=== PATIENT | female | born 1935 | race Caucasian/White ===

== ENCOUNTER 2017-03-05 08:47 | Emergency (ER) | payer MEDICARE, BC ==
[2017-03-05] MEDS ORDERED: Sodium Chloride 0.9% 1000 ML 1,000 ML IV STA (09:25)
[2017-03-05] MEDS ORDERED: Zofran 4 MG/2 ML VIAL IV ONE (09:25)
[2017-03-05] MEDS ORDERED: Zofran 4 MG/2 ML VIAL ONE (09:28)
[2017-03-05] MEDS ORDERED: Sodium Chloride 0.9% 1000 ML 1,000 ML ONE (09:29)
--- NOTE | 2017-03-05 09:31 | ERPHSYRPT ---
- History of Present Illness Time Seen by Provider: 03/05/17 09:28 Source: patient Exam Limitations: no limitations Patient Subjective Stated Complaint: EMS STATES THEY WERE CALLED TO PT RESIDENCE FOR AN ELDERLY FEMALE FEELING NAUSEATED AND NOT WELL. UPON ARRIVAL TO ER PATIENT STATES "I JUST FELT STRANGE AND NAUSEATED." DENIESA [place] DIARRHEA OR VOMITNG. [place] PAIN. Triage Nursing Assessment: PT PINK, WARM, DRY. PT ALERT AND ORIENTED X3. PT AFEBRILE. ABDOMEN SOFT NON TENDER. BOWEL SOUNDS PRESENT IN ALL 4 QAUDS. Physician History: mild to mod nausea today w/o emesis, +diaphoresis w/ generalized weakness and near syncope, no pain, no fever, no injury, pt improving now, pt received a pneumonia shot yesterday Timing/Duration: today Severity: moderate Associated Symptoms: nausea, diaphoresis, weakness, No vomiting, No abdominal pain, No shortness of breath, No chest pain, No fever, No headaches, No syncope Allergies/Adverse Reactions: No Known Drug Allergies Allergy (Unverified 03/05/17 08:56) Home Medications: Aspirin 325 mg PO DAILY 03/05/17 [History] Spironolactone 0 mg PO DAILY 03/05/17 [History] Hx Tetanus, Diphtheria Vaccination/Date Given: Yes (UNKNOWN) Hx Influenza Vaccination/Date Given: Yes Hx Pneumococcal Vaccination/Date Given: Yes Immunizations Up to Date: Yes - Review of Systems Constitutional: No Fever Eyes: No Vision Changes Ears, Nose, & Throat: No Symptoms Respiratory: No Symptoms Cardiac: No Symptoms Abdominal/Gastrointestinal: Nausea, No Abdominal Pain, No Vomiting Genitourinary Symptoms: Dysuria Musculoskeletal: No Back Pain, No Neck Pain Skin: No Rash Neurological: Dizziness, No Focal Weakness, No Headache Psychological: No Symptoms - Past Medical History Pertinent Past Medical History: Yes Cardiac History: Hypertension Psycho-Social History: Depression - Past Surgical History Past Surgical History: Yes Gastrointestinal: Appendectomy, Cholecystectomy Female Surgical History: Hysterectomy - Social History Smoking Status: Never smoker Exposure to second hand smoke: No Drug Use: none Patient Lives Alone: No - Nursing Vital Signs Nursing Vital Signs: Initial Vital Signs Temperature 97.3 F 03/05/17 08:49 Pulse Rate 73 03/05/17 08:49 Respiratory Rate 18 03/05/17 08:49 Blood Pressure 144/96 03/05/17 08:49 O2 Sat by Pulse Oximetry 98 03/05/17 08:49 Pain Scale Pain Intensity 0 - Physical Exam General Appearance: no apparent distress Eye Exam: PERRL/EOMI Ears, Nose, Throat Exam: moist mucous membranes Neck Exam: normal inspection Respiratory Exam: normal breath sounds Cardiovascular Exam: regular rate/rhythm Gastrointestinal/Abdomen Exam: soft, No tenderness Back Exam: normal inspection, No vertebral tenderness Extremity Exam: normal range of motion, pelvis stable, No pedal edema Neurologic Exam: alert, oriented x 3, cooperative, normal mood/affect Skin Exam: normal color, warm, dry SpO2 Interpretation: normal SpO2: 98 Oxygen Delivery: Room Air - Course Nursing assessment & vital signs reviewed: Yes EKG Interpreted by Me: Other (nsr 73, no stemi) - Radiology Exams Chest X-ray Interpretation: Discussed w/ radiologist, Negative - CT Exams Head CT Interpretation: Negative, Discussed w/radiologist Abdomen CT Interpretation: Negative, Discussed w/radiologist Ordered Tests: Active Orders 24 hr Category Date Time Status ACCUCHECK [Accucheck] STAT Care 03/05/17 09:02 Active Co Teacher STAT Care 03/05/17 09:02 Active EKG-ER Only STAT Care 03/05/17 09:02 Active IV Insertion STAT Care 03/05/17 09:02 Active cath [Cath for Specimen-Straight] STAT Care 03/05/17 09:17 Active ABDOMEN AND PELVIS W/0 CONTRAS [CT] Stat Exams 03/05/17 09:25 Completed CHEST 1 VIEW (PORTABLE) Stat Exams 03/05/17 09:25 Completed HEAD WITHOUT CONTRAST [CT] Stat Exams 03/05/17 09:27 Completed CBC W DIFF Stat Lab 03/05/17 09:25 Completed CMP Stat Lab 03/05/17 09:15 Completed CULTURE,URINE Stat Lab 03/05/17 09:45 Received LIPASE Stat Lab 03/05/17 09:15 Completed Lactic Acid Stat Lab 03/05/17 09:25 Completed PROTIME WITH INR Stat Lab 03/05/17 09:15 Completed TROPONIN Q3H Lab 03/05/17 09:15 Completed TROPONIN Q3H Lab 03/05/17 12:30 Ordered TROPONIN Q3H Lab 03/05/17 15:30 Ordered TROPONIN Q3H Lab 03/05/17 18:30 Ordered TROPONIN Q3H Lab 03/05/17 21:30 Ordered UA W/ MICROSCOPIC Stat Lab 03/05/17 09:45 Completed Medication Summary Discontinued Medications Generic Name Dose Route Start Last Admin Trade Name Wendy PRN Reason Stop Dose Admin Sodium Chloride 1,000 mls @ 999 mls/hr 03/05/17 09:25 03/05/17 09:29 Sodium Chloride 0.9% 1000 Ml IV 03/05/17 10:25 999 mls/hr .Q1H1M STA Administration Sodium Chloride Confirm 03/05/17 09:29 Sodium Chloride 0.9% 1000 Ml Administered 03/05/17 09:30 Dose 1,000 mls @ ud .ROUTE .STK-MED ONE Ondansetron HCl 4 mg 03/05/17 09:25 03/05/17 09:29 Zofran 4 Mg/2 Ml Vial IV 03/05/17 09:26 4 mg STAT ONE Administration Ondansetron HCl Confirm 03/05/17 09:28 Zofran 4 Mg/2 Ml Vial Administered 03/05/17 09:29 Dose 4 mg .ROUTE .STK-MED ONE Lab/Rad Data: Laboratory Result Diagrams 03/05/17 09:25 03/05/17 09:15 Laboratory Results 03/05/17 03/05/17 03/05/17 Range/Units 09:45 09:25 09:25 WBC 7.4 (4.0-10.5) K/mm3 RBC 4.79 (4.1-5.4) M/mm3 Hgb 14.2 (12.0-16.0) gm/dl Hct 42.6 (35-47) % MCV 88.9 (78-100) fl MCH 29.6 (26-32) pg MCHC 33.3 (32-36) g/dl RDW 13.5 (11.5-14.0) % Plt Count 246 (150-450) K/mm3 MPV 9.9 H (6-9.5) fl Gran % 61.8 (36.0-66.0) % Lymphocytes % 23.8 L (24.0-44.0) % Monocytes % 10.5 (0.0-12.0) % Eosinophils % 3.6 (0.00-5.0) % Basophils % 0.3 (0.0-0.4) % Basophils # 0.02 (0-0.4) INR (0.8-3.0) Sodium (136-145) mEq/L Potassium (3.5-5.1) mEq/L Chloride (98-107) mEq/L Carbon Dioxide (21-32) mEq/L Anion Gap (5-15) MEQ/L BUN (9-20) mg/dL Creatinine (0.55-1.30) mg/dl Estimated GFR ML/MIN Glucose (70-110) MG/DL Lactic Acid 1.3 (0.4-2.0) Calcium (8.5-10.1) mg/dL Total Bilirubin (0.2-1.0) mg/dL AST (15-37) U/L ALT (12-78) U/L Alkaline Phosphatase (46-116) U/L Troponin I (0.000-0.056) ng/ml Serum Total Protein (6.4-8.2) gm/dL Albumin (3.4-5.0) g/dL Lipase (73-393) U/L Ur Collection Type CATH Urine Color YELLOW (YELLOW) Urine Appearance CLOUDY (CLEAR) Urine pH 8.0 (5-6) Ur Specific [place] 1.010 (1.005-1.025) Urine Protein 30 (Negative) Urine Ketones NEGATIVE (NEGATIVE) Urine Blood 5-10 (0-5) Jason/ul Urine Nitrite POSITIVE (NEGATIVE) Urine Bilirubin NEGATIVE (NEGATIVE) Urine Urobilinogen NORMAL (0-1) mg/dL Ur Leukocyte Esterase 2+ (NEGATIVE) Urine Microscopic RBC 5-10 (0-2) /HPF Urine Microscopic WBC 50-100 (0-5) /HPF Ur Epithelial Cells FEW (FEW) /HPF Urine Bacteria MANY (NEGATIVE) /HPF Urine Mucus SLIGHT (NEGATIVE) /HPF Urine Culture Reflexed YES (NO) Urine Glucose NEGATIVE (NEGATIVE) mg/dL Specimen Received 03-0503/05/17 03/05/17 03/05/17 Range/Units 09:15 09:15 09:15 WBC (4.0-10.5) K/mm3 RBC (4.1-5.4) M/mm3 Hgb (12.0-16.0) gm/dl Hct (35-47) % MCV (78-100) fl MCH (26-32) pg MCHC (32-36) g/dl RDW (11.5-14.0) % Plt Count (150-450) K/mm3 MPV (6-9.5) fl Gran % (36.0-66.0) % Lymphocytes % (24.0-44.0) % Monocytes % (0.0-12.0) % Eosinophils % (0.00-5.0) % Basophils % (0.0-0.4) % Basophils # (0-0.4) INR 1.11 (0.8-3.0) Sodium 136 (136-145) mEq/L Potassium 4.2 (3.5-5.1) mEq/L Chloride 103 (98-107) mEq/L Carbon Dioxide 23.2 (21-32) mEq/L Anion Gap 13.8 (5-15) MEQ/L BUN 19 (9-20) mg/dL Creatinine 0.86 (0.55-1.30) mg/dl Estimated GFR > 60 ML/MIN Glucose 110 (70-110) MG/DL Lactic Acid (0.4-2.0) Calcium 9.4 (8.5-10.1) mg/dL Total Bilirubin 1.00 (0.2-1.0) mg/dL AST 17 (15-37) U/L ALT 19 (12-78) U/L Alkaline Phosphatase 74 (46-116) U/L Troponin I < 0.017 (0.000-0.056) ng/ml Serum Total Protein 6.9 (6.4-8.2) gm/dL Albumin 3.9 (3.4-5.0) g/dL Lipase 117 (73-393) U/L Ur Collection Type Urine Color (YELLOW) Urine Appearance (CLEAR) Urine pH (5-6) Ur Specific [place] (1.005-1.025) Urine Protein (Negative) Urine Ketones (NEGATIVE) Urine Blood (0-5) Jason/ul Urine Nitrite (NEGATIVE) Urine Bilirubin (NEGATIVE) Urine Urobilinogen (0-1) mg/dL Ur Leukocyte Esterase (NEGATIVE) Urine Microscopic RBC (0-2) /HPF Urine Microscopic WBC (0-5) /HPF Ur Epithelial Cells (FEW) /HPF Urine Bacteria (NEGATIVE) /HPF Urine Mucus (NEGATIVE) /HPF Urine Culture Reflexed (NO) Urine Glucose (NEGATIVE) mg/dL Specimen Received - Progress Progress: improved Discussed with : Betty Will see patient in: office Counseled pt/family regarding: lab results, diagnosis, need for follow-up, rad results (differential dw pt as tia, viral syndrome, uti, recent vaccination rx) - Departure Time of Disposition: 12:16 Departure Disposition: Home Clinical Impression: UTI (urinary tract infection) Qualifiers: Urinary tract infection type: acute cystitis Hematuria presence: with hematuria Qualified Code(s): N30.01 - Acute cystitis with hematuria Condition: Good Critical Care Time: No Referrals: DAKOTA DE SANTIAGO [Primary Care Provider] - Additional Instructions: oral fluids, rest, return if worse, keflex, see your doctor aspirin daily, zofran odt
[2017-03-05 09:37] LABS: BASOPHIL % 0.3 % (0.0-0.4); Eosinophil % 3.6 % (0.00-5.0); Granulocytes % 61.8 % (36.0-66.0); Lymphocytes % 23.8 % (24.0-44.0); Mean Cell Volume 88.9 fl (78-100); Mean Corpuscular Hemoglobin 29.6 pg (26-32); Mean Platelet Volume 9.9 fl (6-9.5); Monocytes % 10.5 % (0.0-12.0); Platelet Count 246 K/mm3 (150-450); Red Blood Count 4.79 M/mm3 (4.1-5.4); Red Cell Distribution Width 13.5 % (11.5-14.0); White Blood Count 7.4 K/mm3 (4.0-10.5)
[2017-03-05 09:59] LABS: INR 1.11 (0.8-3.0); PROTIME 12.3 SECONDS (9.95-12.35)
[2017-03-05 10:12] LABS: ALBUMIN 3.9 g/dL (3.4-5.0); ALKALINE PHOSPHATASE 74 U/L (46-116); ANION GAP 13.8 MEQ/L (5-15); BLOOD UREA NITROGEN 19 mg/dL (9-20); CHLORIDE 103 mEq/L (98-107); Carbon Dioxide 23.2 mEq/L (21-32); Glucose 110 MG/DL (70-110); LIPASE 117 U/L (73-393); Potassium 4.2 mEq/L (3.5-5.1); SGOT/AST 17 U/L (15-37); SGPT/ALT 19 U/L (12-78); SODIUM 136 mEq/L (136-145); Total Protein 6.9 gm/dL (6.4-8.2)
--- NOTE | 2017-03-05 10:18 | XRAY ---
Indication: Dizziness and near syncope. Multiple contiguous axial images obtained through the head without contrast. Comparison: None Age-appropriate global atrophy and mild periventricular degenerative micro-ischemia bilaterally. No acute intracranial hemorrhage, abnormal extra-axial fluid collection, or mass effect. Fourth ventricle is midline without hydrocephalus. Bony calvarium intact. There is fluid leveling in the left maxillary and lesser degree both sphenoid sinuses. Previous right mastoidectomy. Impression: Nonacute senile brain. Incidental paranasal sinus disease. CT DI 61.85
--- NOTE | 2017-03-05 10:19 | XRAY ---
Indication: Vomiting. Comparison: July 23, 2012. Portable chest remains clear. Heart is not enlarged for AP portable technique. Descending aorta remains tortuous. Bony thorax intact again with mild osteopenia. Impression: Stable nonacute chest with chronic features.
--- NOTE | 2017-03-05 10:19 | XRAY ---
Indication: Nausea and vomiting. Multiple contiguous axial images obtained through the abdomen and pelvis without contrast as ordered. Comparison: CT renal stone study July 30, 2006. Lung bases again demonstrates minimal bibasilar atelectasis/scarring. No infiltrate or effusion. Heart is not enlarged. Noncontrasted stomach and bowel loops appear nonobstructed. There is mild diffuse scattered colonic fecal debris throughout again with mild sigmoid diverticulosis. Previous reported appendectomy, cholecystectomy, and hysterectomy. No free fluid/air. Urinary bladder now demonstrates intraluminal air bubbles either iatrogenic versus gas-forming bacterial infection. The 2 previous hepatic cysts have minimally enlarged in the interim, largest measuring 1.9 cm. Remaining liver, pancreas, spleen, adrenal glands, kidneys, and ureters appear unremarkable for noncontrast exam. There are mild aortoiliac calcifications without AAA. Osseous structures intact again with minimal degenerative changes throughout the spine and stable grade 1 L4 spondylolisthesis. Impression: 1. New urinary bladder intraluminal air bubbles. Rule out recent catheterization versus airforming bacterial infection. 2. Fecal stasis without obstruction. Again sigmoid diverticulosis without diverticulitis. 3. Minimally enlarging hepatic cysts. 4. Stable L4 grade [address] DI 18.10
[2017-03-05 10:21] LABS: Bilirubin NEGATIVE (NEGATIVE); COMPLETE URINE MICROSCOPIC? YES; Epithelial Cells FEW /HPF (FEW); Glucose NEGATIVE (NEGATIVE); Leukocyte Esterase 2+ (NEGATIVE); Mucus SLIGHT /HPF (NEGATIVE); WBC 50-100 /HPF (0-5)
[2017-03-05 10:22] LABS: ADD URINE CULTURE? YES (NO); Bacteria MANY /HPF (NEGATIVE); Collection Type CATH
[2017-03-05 11:06] VITALS: PULSE 78
[2017-03-05 11:46] VITALS: O2SAT 98
[2017-03-05 12:13] VITALS: BP 129/83
== END 2017-03-05 13:00 | disposition home or self-care (01) ==
LOC: ED 08:47
DX: N30.01 Acute cystitis with hematuria (principal); R11.0 Nausea; I10 Essential (primary) hypertension
CPT/HCPCS: 93041; 96374; 99284; 36000; 82962; 93005; 81000; 85610; 36415; 83690; 87186; 85025; 87077; 80053; 84484; 87086; 71010; 70450; 74176; 83605; P9612; J2405

== ENCOUNTER 2017-12-14 11:51 | Observation (INO) | payer MEDICARE, BC ==
--- NOTE | 2017-12-14 12:02 | ERPHSYRPT ---
- History of Present Illness Time Seen by Provider: 12/14/17 11:59 Source: patient Patient Subjective Stated Complaint: pt here for weakness and slurred speech, today that started about 1030. she states she took AEZO otc meds and then she states her syptoms started. Triage Nursing Assessment: pt walked in, anxoius, alert and oreinted, resp easy , chest clear, abd soft, has slight swelling to lower legs, moves all ext well Physician History: mild to mod general weakness w/o loc at 10:30 for a few minutes, also w/ slurring speech and unable to read print, all symptoms gone now, no pain, no NV , no fever, hx uti Allergies/Adverse Reactions: clindamycin Adverse Reaction (Verified 12/14/17 11:58) Home Medications: Aspirin 325 mg PO DAILY 03/05/17 [History] Diltiazem HCl [Cartia Xt] 240 mg DAILY 12/14/17 [History] Levothyroxine Sodium 88 Mcg [Synthroid 88 Mcg] 88 mcg DAILY 12/14/17 [ History] Sertraline HCl 25 mg DAILY 12/14/17 [History] Hx Tetanus, Diphtheria Vaccination/Date Given: No Hx Influenza Vaccination/Date Given: No Hx Pneumococcal Vaccination/Date Given: Yes Immunizations Up to Date: Yes - Review of Systems Constitutional: Weakness, No Fever Eyes: No Discharge, No Eye Pain, No Eye Redness, No Photophobia, No Double Vision Ears, Nose, & Throat: No Mouth Pain Respiratory: No Dyspnea Cardiac: No Chest Pain Abdominal/Gastrointestinal: No Abdominal Pain, No Vomiting Genitourinary Symptoms: No Dysuria Musculoskeletal: No Back Pain, No Neck Pain Skin: No Rash Neurological: Speech Changes, No Dizziness, No Focal Weakness, No Headache - Past Medical History Pertinent Past Medical History: Yes Cardiac History: Hypertension Psycho-Social History: Anxiety, Depression - Past Surgical History Past Surgical History: Yes Gastrointestinal: Appendectomy, Cholecystectomy Female Surgical History: Hysterectomy - Social History Smoking Status: Never smoker Exposure to second hand smoke: No Drug Use: none Patient Lives Alone: No - Female History Hx Last Menstrual Period: post - Nursing Vital Signs Nursing Vital Signs: Initial Vital Signs Temperature 97.2 F 12/14/17 11:53 Pulse Rate 89 12/14/17 11:53 Respiratory Rate 16 12/14/17 11:53 Blood Pressure 167/113 12/14/17 11:53 O2 Sat by Pulse Oximetry 94 L 12/14/17 11:53 Pain Scale Pain Intensity 0 - [place] Coma Scale Best Eye Response ([place]): (4) open spontaneously Best Verbal Response ([place]): (5) oriented Best Motor Response ([place]): (6) obeys commands [place] Total: 15 - Physical Exam Eye Exam: bilateral eye: PERRL, EOMI Ears, Nose, Throat Exam: moist mucous membranes Neck Exam: normal inspection Respiratory: normal breath sounds, lungs clear, No respiratory distress Cardiovascular: regular rate/rhythm Gastrointestinal: soft, No tenderness Back Exam: normal range of motion Extremity Exam: normal inspection Mental Status: alert, oriented x 3, cooperative, other (ems director equal) net developer architect Exam: normal hearing, normal speech, PERRL Motor/Sensory: no motor deficit Skin Exam: normal color, warm, dry SpO2 Interpretation: normal SpO2: 94 Oxygen Delivery: Room Air - Course Nursing assessment & vital signs reviewed: Yes EKG Interpreted by Me: Other (nsr 82, pvc, no stemi) - Radiology Exams Chest X-ray Interpretation: Discussed w/ radiologist, Negative - CT Exams Head CT Interpretation: Negative, Discussed w/radiologist Ordered Tests: Active Orders 24 hr Category Date Time Status Pmp Project Manager STAT Care 12/14/17 11:57 Active EKG-ER Only STAT Care 12/14/17 11:57 Active IV Insertion STAT Care 12/14/17 11:57 Active Nursing [Miscellaneous Nursing Order] ROUTINE Care 12/14/17 12:55 Active CHEST 1 VIEW (PORTABLE) Stat Exams 12/14/17 11:57 Completed HEAD WITHOUT CONTRAST [CT] Stat Exams 12/14/17 11:52 Completed CBC W DIFF Stat Lab 12/14/17 12:17 Completed CMP Stat Lab 12/14/17 12:17 Completed CULTURE,URINE Stat Lab 12/14/17 12:45 Received Lactic Acid Stat Lab 12/14/17 12:14 Completed TROPONIN Q3H Lab 12/14/17 12:17 Completed TROPONIN Q3H Lab 12/14/17 15:00 Ordered TROPONIN Q3H Lab 12/14/17 18:00 Ordered TROPONIN Q3H Lab 12/14/17 21:00 Ordered TROPONIN Q3H Lab 12/15/17 00:00 Ordered UA W/ MICROSCOPIC Stat Lab 12/14/17 12:45 Completed Transfer Order Routine Transfer 12/14/17 Ordered Lab/Rad Data: Laboratory Result Diagrams 12/14/17 12:17 12/14/17 12:17 Laboratory Results 12/14/17 12/14/17 12/14/17 Range/Units 12:45 12:17 12:17 WBC (4.0-10.5) K/mm3 RBC (4.1-5.4) M/mm3 Hgb (12.0-16.0) gm/dl Hct (35-47) % MCV (78-100) fl MCH (26-32) pg MCHC (32-36) g/dl RDW (11.5-14.0) % Plt Count (150-450) K/mm3 MPV (6-9.5) fl Gran % (36.0-66.0) % Eos # (Auto) (0-0.5) Absolute Lymphs (auto) (1.0-4.6) Absolute Monos (auto) (0.0-1.3) Lymphocytes % (24.0-44.0) % Monocytes % (0.0-12.0) % Eosinophils % (0.00-5.0) % Basophils % (0.0-0.4) % Absolute Granulocytes (1.4-6.9) Basophils # (0-0.4) Sodium 138 (137-145) mmol/L Potassium 3.9 (3.5-5.1) mmol/L Chloride 102 (98-107) mmol/L Carbon Dioxide 24 (22-30) mmol/L Anion Gap 16.3 H (5-15) MEQ/L BUN 20 H (7-17) mg/dL Creatinine 0.76 (0.52-1.04) mg/dL Estimated GFR > 60.0 ML/MIN Glucose 95 (74-106) mg/dL Lactic Acid (0.4-2.0) Calcium 10.0 (8.4-10.2) mg/dL Total Bilirubin 1.10 (0.2-1.3) mg/dL AST 29 (14-36) U/L ALT 26 (0-35) U/L Alkaline Phosphatase 102 (38-126) U/L Troponin I < 0.012 (0.000-0.034) ng/mL Serum Total Protein 7.8 (6.3-8.2) g/dL Albumin 4.7 (3.5-5.0) g/dL Ur Collection Type VOID Urine Color ORANGE (YELLOW) Urine Appearance HAZY (CLEAR) Urine pH 5.0 (5-6) Ur Specific [place] 1.010 (1.005-1.025) Urine Protein COLOR INTERFERENCE (Negative) Urine Ketones COLOR INTERFERENCE (NEGATIVE) Urine Blood 50 (0-5) Jason/ul Urine Nitrite COLOR INTERFERENCE (NEGATIVE) Urine Bilirubin COLOR INTERFERENCE (NEGATIVE) Urine Urobilinogen COLOR INTERFERENCE (0-1) mg/dL Ur Leukocyte Esterase COLOR INTERFERENCE (NEGATIVE) Urine Microscopic RBC 2-5 (0-2) /HPF Urine Microscopic WBC >100 (0-5) /HPF Ur Epithelial Cells FEW (FEW) /HPF Urine Bacteria FEW (NEGATIVE) /HPF Urine Culture Reflexed YES (NO) Urine Glucose COLOR INTERFERENCE (NEGATIVE) mg/dL Specimen Received 12/14/17 1245 12/14/17 12/14/17 Range/Units 12:17 12:14 WBC 7.5 (4.0-10.5) K/mm3 RBC 4.97 (4.1-5.4) M/mm3 Hgb 14.9 (12.0-16.0) gm/dl Hct 43.8 (35-47) % MCV 88.1 (78-100) fl MCH 30.0 (26-32) pg MCHC 34.0 (32-36) g/dl RDW 14.2 H (11.5-14.0) % Plt Count 243 (150-450) K/mm3 MPV 10.2 H (6-9.5) fl Gran % 63.4 (36.0-66.0) % Eos # (Auto) 0.17 (0-0.5) Absolute Lymphs (auto) 1.69 (1.0-4.6) Absolute Monos (auto) 0.89 (0.0-1.3) Lymphocytes % 22.4 L (24.0-44.0) % Monocytes % 11.8 (0.0-12.0) % Eosinophils % 2.3 (0.00-5.0) % Basophils % 0.1 (0.0-0.4) % Absolute Granulocytes 4.77 (1.4-6.9) Basophils # 0.01 (0-0.4) Sodium (137-145) mmol/L Potassium (3.5-5.1) mmol/L Chloride (98-107) mmol/L Carbon Dioxide (22-30) mmol/L Anion Gap (5-15) MEQ/L BUN (7-17) mg/dL Creatinine (0.52-1.04) mg/dL Estimated GFR ML/MIN Glucose (74-106) mg/dL Lactic Acid 1.0 (0.4-2.0) Calcium (8.4-10.2) mg/dL Total Bilirubin (0.2-1.3) mg/dL AST (14-36) U/L ALT (0-35) U/L Alkaline Phosphatase (38-126) U/L Troponin I (0.000-0.034) ng/mL Serum Total Protein (6.3-8.2) g/dL Albumin (3.5-5.0) g/dL Ur Collection Type Urine Color (YELLOW) Urine Appearance (CLEAR) Urine pH (5-6) Ur Specific [place] (1.005-1.025) Urine Protein (Negative) Urine Ketones (NEGATIVE) Urine Blood (0-5) Jason/ul Urine Nitrite (NEGATIVE) Urine Bilirubin (NEGATIVE) Urine Urobilinogen (0-1) mg/dL Ur Leukocyte Esterase (NEGATIVE) Urine Microscopic RBC (0-2) /HPF Urine Microscopic WBC (0-5) /HPF Ur Epithelial Cells (FEW) /HPF Urine Bacteria (NEGATIVE) /HPF Urine Culture Reflexed (NO) Urine Glucose (NEGATIVE) mg/dL Specimen Received - Progress Progress: improved Discussed with : Lewis Will see patient in: hospital (observation) Counseled pt/family regarding: lab results, diagnosis, rad results - Departure Time of Disposition: 14:13 Departure Disposition: Observation Clinical Impression: TIA (transient ischemic attack) Condition: Stable Critical Care Time: No Referrals: DAKOTA DE SANTIAGO [Primary Care Provider] -
--- NOTE | 2017-12-14 12:19 | XRAY ---
Indication: Weakness and confusion. Comparison: March 05, 2017. Portable chest remains clear. Heart is not enlarged. Descending aorta remains tortuous. Bony thorax intact again with mild osteopenia. Impression: Stable nonacute chest with chronic features.
[2017-12-14 12:20] LABS: BASOPHIL % 0.1 % (0.0-0.4); Basophil (Absolute #) 0.01 (0-0.4); Eosinophil % 2.3 % (0.00-5.0); Eosinophil (Absolute #) 0.17 (0-0.5); Granulocyte Absolute (ANC) 4.77 (1.4-6.9); Granulocytes % 63.4 % (36.0-66.0); Hematocrit 43.8 % (35-47); Hemoglobin 14.9 gm/dl (12.0-16.0); Lymphocyte (Absolute #) 1.69 (1.0-4.6); Lymphocytes % 22.4 % (24.0-44.0); Mean Cell Volume 88.1 fl (78-100); Mean Platelet Volume 10.2 fl (6-9.5); Monocyte (Absolute #) 0.89 (0.0-1.3); Monocytes % 11.8 % (0.0-12.0); Platelet Count 243 K/mm3 (150-450); Red Blood Count 4.97 M/mm3 (4.1-5.4); Red Cell Distribution Width 14.2 % (11.5-14.0); White Blood Count 7.5 K/mm3 (4.0-10.5)
[2017-12-14 12:36] LABS: ALBUMIN 4.7 g/dL (3.5-5.0); ALKALINE PHOSPHATASE 102 U/L (38-126); ANION GAP 16.3 MEQ/L (5-15); BLOOD UREA NITROGEN 20 mg/dL (7-17); CHLORIDE 102 mmol/L (98-107); Carbon Dioxide 24 mmol/L (22-30); Creatinine 1 0.76 mg/dL (0.52-1.04); Glucose 95 mg/dL (74-106); Potassium 3.9 mmol/L (3.5-5.1); SGOT/AST 29 U/L (14-36); SGPT/ALT 26 U/L (0-35); SODIUM 138 mmol/L (137-145); Total Protein 7.8 g/dL (6.3-8.2)
--- NOTE | 2017-12-14 12:43 | XRAY ---
Indication: Slurred speech. Multiple contiguous axial images obtained through the head without contrast. Comparison: March 05, at 2017. Stable age-appropriate global atrophy, mild periventricular degenerative micro-ischemia bilaterally, and tiny left basal ganglia remote lacunar infarct. No acute intracranial hemorrhage, abnormal extra-axial fluid collection, or mass effect. Fourth ventricle is midline without hydrocephalus. Bony calvarium intact. Tiny fluid leveling in both ethmoid sinuses. Again previous right mastoidectomy. Impression: 1. 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 2. Incidental paranasal sinus disease. CT DI 70.69
[2017-12-14 12:58] LABS: Appearance HAZY (CLEAR); Bilirubin COLOR INTERFERENCE (NEGATIVE); Blood 50 Ery/ul (0-5); Glucose COLOR INTERFERENCE mg/dL (NEGATIVE); Ketones COLOR INTERFERENCE (NEGATIVE); Leukocyte Esterase COLOR INTERFERENCE (NEGATIVE); Nitrite COLOR INTERFERENCE (NEGATIVE); Protein,Urine Dip COLOR INTERFERENCE (Negative); Urobilinogen COLOR INTERFERENCE mg/dL (0-1)
[2017-12-14 13:22] LABS: Bacteria FEW /HPF (NEGATIVE); Epithelial Cells FEW /HPF (FEW); WBC >100 /HPF (0-5)
[2017-12-14] MEDS ORDERED: TYLENOL 325 MG PO PRN (14:38)
[2017-12-14] MEDS: Sodium Chloride 0.9% 1000 ML 1,000 ML IV SCH (16:09)
[2017-12-14] MEDS ORDERED: PLAVIX 75 MG Tablet PO ONE (17:23)
[2017-12-14] MEDS ORDERED: ZOLOFT 50 MG TABLET PO ONE (20:00)
[2017-12-14] MEDS ORDERED: SYNTHROID 88 MCG PO SCH (22:00)
[2017-12-15] MEDS: Sodium Chloride 0.9% 1000 ML 1,000 ML IV SCH (01:58)
[2017-12-15 06:18] LABS: Risk Ratio 3.5
--- NOTE | 2017-12-15 08:57 | HP ---
HISTORY OF PRESENT ILLNESS: This is an 82 year-old patient of Dr. Sarmad Myers who presented to the emergency department. She reports that she has been very fatigued and tired and has had increased stress. She reports this morning the veins in her legs hurt and then she described an aura that she around 1000 hours. Earlier in the day she thought she might have a bladder infection so she took Azo. She reports that with her aura she saw flashing lights. She reports she was at [facility] and could not read her list. That seemed to clear up and she was able to buy what was on her list and then she went to [employer] and was having trouble speaking so she came to the emergency department. She reports she took two aspirin yesterday evening. REVIEW OF SYSTEMS: No fever. No chest pain. She reports a little dyspnea which she attributes to sinus trouble. She has had bladder spasms and trouble urinating and she has to force out the urine. She reports a history of a rectocele. PAST MEDICAL HISTORY: Aortic regurgitation, rectocele, anxiety, hypothyroidism, hypertension. PAST SURGICAL HISTORY: Gallbladder surgery, hemorrhoid surgery, hysterectomy. She reports surgery on her right eardrum. MEDICATIONS: Please see the current medication list. ALLERGIES: CLINDAMYCIN. SOCIAL HISTORY: She is and lives with her who is 89 years old. She denies any alcohol or tobacco use. FAMILY HISTORY: Her mother and father both of myocardial infarction. Her mother at 70 and her father at 78. PHYSICAL EXAMINATION: VITAL SIGNS: Temperature current 98.0F, temperature max 98.0F, heart rate 75 to 89, respiratory rate 16 to 18, blood pressure 144 to 167 over 73 to 113, weight 63 kg. Oxygen saturation 94 to 96% on room air. GENERAL: The patient is lying in bed a pleasant talkative lady in no acute distress. CVS: She has a regular rate and rhythm. No murmurs, gallops or rubs are appreciated. CHEST: Clear to auscultation bilaterally. No crackles or wheezes. ABDOMEN: Soft, nontender, nondistended with normal bowel sounds. EXTREMITIES: No clubbing, cyanosis or edema. She has multiple varicose veins. NEURO: Cranial nerves II-XII were intact. Strength 5/5 in all four extremities. Normal heel to whitaker and finger to nose. Pupils equal round reactive to light. LABORATORY DATA AND TESTS: CBC is within normal limits. Comprehensive metabolic panel revealed BUN 20. Two troponins have been negative. UA revealed greater than 100 white blood cells and few bacteria. Urine culture was ordered. She had head CT at was read as nonacute senile brain with tiny remote left basal ganglia lacunar infarct, incidental paranasal sinus disease. ASSESSMENT AND PLAN: 1) TRANSIENT ISCHEMIC ATTACK: She is on telemetry. Serial troponins ordered. Tele-neurology consulted and saw the patient. Since she had this event after taking aspirin the night before I am going to start her on Plavix 75 mg p.o. daily. I will check carotid Doppler's in the morning, echo in the morning and MRI her brain with and without contrast and with further work up through her primary care doctor, Dr. Sarmad Morris. A fasting lipid profile is ordered for the morning. 2) BACTERIURIA: Will check urine culture. 3) HYPERTENSION: I am going to hold her antihypertensive as we want to not lower her blood pressure too fast unless the systolic blood pressure is greater than 220 or her diastolic greater than 120. 4) ANXIETY: We will continue her home medication. 5) HYPOTHYROIDISM: Will continue on home medication. Will plan to check TSH.
[2017-12-15] MEDS ORDERED: ROCEPHIN 1 Gm-D5w 50 ml Bag** 1 G/50 ML IVPB IV SCH (10:00)
--- NOTE | 2017-12-15 14:34 | PCM.DS ---
Discharge Summary Date of Admission: 12/14/17 14:32 Date of Discharge: 12/15/2017 Admitting Physician: YURI HERR Primary Care Provider: DAKOTA DE SANTIAGO Allergies Allergies clindamycin Adverse Reaction (Verified 12/14/17 11:58) Hospital Summary - Hospital Course Hospital Course: She presented after having abrupt new onset of neurological symptoms with a period of flashing lights followed by difficulty reading and inability to speak well that started at 10:00 prior to arrival but was improving after arrival to the ED. she had no further neurological symptoms after presentation or in observation. she was already taking aspirin 325 mg and a plavix was added. She had negative head ct and was not able to tolerate the MRI due to anxiety over the noise. carotid u/s with minimal plaquing and telemetry was ok. She has echo results pending. She had good lipid panel. With the minimal plaquing a statin was added as well as the plavix to take with 81 mg of aspirin. She has stroke hx in the family and she wants to be aggressive about prevention. Will return for any new focal neurological deficits. - Vitals & Intake/Output Vital Signs: Vital Signs Temperature 97.5 F 12/15/17 12:00 Pulse Rate 82 12/15/17 12:00 Respiratory Rate 18 12/15/17 12:00 Blood Pressure 178/92 12/15/17 12:00 O2 Sat by Pulse Oximetry 97 12/15/17 12:00 Intake & Output: Intake & Output 12/13/17 12/14/17 12/15/17 12/16/17 11:59 11:59 11:59 11:59 Intake Total 2047 240 Output Total 500 Balance 1547 240 Weight 61.689 kg 63 kg - Lab Result Diagrams: 12/14/17 12:17 12/14/17 12:17 Lab Results-Last 24 Hrs: Lab Results-Last 24 Hours 12/14/17 12/14/17 12/14/17 Range/Units 15:20 17:42 21:30 Hemoglobin A1c (4.5-6.0) % Troponin I < 0.012 < 0.012 < 0.012 (0.000-0.034) ng/mL Triglycerides (30-150) mg/dL Cholesterol (50-200) mg/dL LDL Cholesterol (30-100) mg/dL HDL Cholesterol (40-60) mg/dL Heart Disease Risk Ratio TSH 3rd Generation (0.47-4.68) mIU/L 12/14/17 12/14/17 12/15/17 Range/Units 21:30 Unknown 05:30 Hemoglobin A1c 5.38 (4.5-6.0) % Troponin I (0.000-0.034) ng/mL Triglycerides 42 (30-150) mg/dL Cholesterol 163 (50-200) mg/dL LDL Cholesterol 95 (30-100) mg/dL HDL Cholesterol 46 (40-60) mg/dL Heart Disease Risk Ratio 3.5 TSH 3rd Generation 1.040 (0.47-4.68) mIU/L Micro Results-Entire Visit: Microbiology 12/14/17 12:45 Urine Culture - Preliminary Urine, Void GRAM NEGATIVE ID AND SENSITIVITY PENDING - Radiology Exams Ordered Rad Exams-Entire Visit: Radiology Procedures Category Date Time Status CAROTID BILATERAL [US] Routine Exams 12/15/17 08:00 Taken CHEST 1 VIEW (PORTABLE) Stat Exams 12/14/17 11:57 Completed ECHO W/2D AND DOPPLER [US] Routine Exams 12/15/17 08:00 Taken HEAD WITHOUT CONTRAST [CT] Stat Exams 12/14/17 11:52 Completed Discharge Exam General Appearance: no apparent distress, alert, anxiety Neurologic Exam: alert, oriented x 3, cooperative, normal mood/affect, nml cerebellar function, sensation nml, No motor deficits Skin Exam: normal color, warm, dry Eye Exam: PERRL, EOMI, eyes nml inspection Ears, Nose, Throat Exam: normal ENT inspection, pharynx normal, moist mucous membranes Neck Exam: normal inspection, non-tender, supple, full range of motion Respiratory Exam: normal breath sounds, lungs clear, No respiratory distress Cardiovascular Exam: regular rate/rhythm, normal heart sounds Gastrointestinal/Abdomen Exam: soft, No tenderness, No mass Extremity Exam: normal inspection, normal range of motion Back Exam: normal inspection, normal range of motion, No CVA tenderness, No vertebral tenderness Pelvic Exam: deferred Rectal Exam: deferred Final Diagnosis/Problem List - Final Discharge Diagnosis/Problem (1) TIA (transient ischemic attack) Status: Acute (2) UTI (urinary tract infection) Status: Acute (3) Essential (primary) hypertension Status: Chronic (4) Anxiety Status: Chronic (5) Hypothyroid Status: Chronic - Discharge Disposition: Home, Self-Care Condition: Stable Prescriptions: New Aspirin EC 81 mg [Ecotrin 81 mg] 81 mg PO DAILY #30 tablet.ec Cephalexin Mh 500 mg [Keflex 500 mg] 500 mg PO BID #12 capsule Clopidogrel Bisulfate 75 mg [PLAVIX 75 MG Tablet] 75 mg PO DAILY #30 tablet Pravastatin Sodium 10 mg PO DAILY #30 tablet Continue Sertraline HCl 25 mg 1700 Levothyroxine Sodium 88 Mcg [Synthroid 88 Mcg] 88 mcg HS Diltiazem HCl [Cartia Xt] 240 mg HS Discontinued Aspirin 325 mg PO DAILY Instructions: Transient Ischemic Attack, Stroke Follow up with: DAKOTA DE SANTIAGO [Primary Care Provider] - 12/22/17 10:30 am
--- NOTE | 2017-12-15 14:53 | XRAY ---
Indication: TIA. Two-dimensional sonogram and color Doppler imaging of the carotid arteries of the neck performed. Comparison: None Examination of the right carotid circulation demonstrates minimal calcified plaquing at the level of the bulb slightly extending into the origin of the external carotid artery. PSV of the CCA is 41 cm/s. PSV of the ICA is 35 cm/s. ICA/CCA ratio is 0.8. Normal antegrade vertebral artery flow. Examination of the left carotid circulation demonstrates widely patent common carotid artery, bulb, and internal/external carotid arteries. Mildly tortuous internal carotid artery. PSV of the CCA is 56 cm/s. PSV of the ICA is 49 cm/s. ICA/CCA ratio is 0.9. Normal antegrade vertebral artery flow. Impression: Minimal plaquing in the right carotid circulation and widely patent left carotid circulation. Velocity measurements and ratios are also negative for hemodynamically significant flow-limiting stenosis.
[2017-12-15 15:36] VITALS: BP 177/88; PULSE 86; O2SAT 86
[2017-12-15] MEDS ORDERED: ZOLOFT 50 MG TABLET PO SCH (17:00)
[2017-12-15] MEDS ORDERED: PLAVIX 75 MG Tablet PO SCH (17:00)
== END 2017-12-15 15:30 | disposition home or self-care (01) ==
LOC: ED 11:51 → MED SURG 14:32
PROVIDERS: ADMIT Internal Medicine; ATTEND Family Medicine
DX: G45.9 Transient cerebral ischemic attack, unspecified (principal); R82.71 Bacteriuria; I10 Essential (primary) hypertension; I35.1 Nonrheumatic aortic (valve) insufficiency; F41.9 Anxiety disorder, unspecified; E03.9 Hypothyroidism, unspecified; N81.6 Rectocele
CPT/HCPCS: 36000; 36415; 70450; 71045; 80053; 80061; 81000; 83036; 83605; 83721; 84443; 84484; 85025; 87077; 87086; 87186; 93005; 93041; 93268; 93306; 93880; 99285; J0696; A9270-GY; G0378

== ENCOUNTER 2018-02-07 13:47 | Observation (INO) | payer MEDICARE, BC ==
--- NOTE | 2018-02-07 14:14 | ERPHSYRPT ---
- History of Present Illness Time Seen by Provider: 02/07/18 13:58 Source: patient Exam Limitations: no limitations Patient Subjective Stated Complaint: NOSE BLEED X 1HOUR ON BLOOD THINNNERS Triage Nursing Assessment: PT ALERT AND ORIENTED X3, ABLE TO AMBULATE BY SELF, RIGHT NARES BLEEDING PROFUSELY, NO TRAUMA ASSOCIATED , CLOTS ACTIVELY COMING OUT COUGHED IT UP Physician History: 82-year-old white female with history of aortic regurgitation, rectocele, hypothyroidism, depression, high blood pressure, anxiety Arrives with complaint of bleeding from the right naris since one hour prior to arrival. Patient states she began bleeding she summoned medics they state they have applied pressure but patient continues to bleed. Past medical history includes high blood pressure, aortic regurgitation, rectocele, hypothyroidism, depression, anxiety. Past surgical history includes appendectomy, cholecystectomy, hysterectomy. Social history denies tobacco alcohol or illicit drug use. Timing/Duration: today (one hour prior to arrival) Severity: moderate Modifying Factors: Improves With: nothing Associated Symptoms: other (nosebleed for 1 hour states she has felt dizzy for a couple of days), No nausea, No vomiting, No abdominal pain, No shortness of breath, No heartburn, No diaphoresis, No cough, No chills, No chest pain, No fever, No headaches, No loss of appetite, No malaise, No rash, No syncope, No seizure, No weakness Allergies/Adverse Reactions: clindamycin Adverse Reaction (Verified 12/14/17 11:58) Home Medications: Diltiazem HCl [Cartia Xt] 240 mg HS 12/14/17 [History] Levothyroxine Sodium 88 Mcg [Synthroid 88 Mcg] 88 mcg HS 12/14/17 [History ] Sertraline HCl 25 mg 1700 12/14/17 [History] Hx Tetanus, Diphtheria Vaccination/Date Given: Yes Hx Influenza Vaccination/Date Given: Yes Hx Pneumococcal Vaccination/Date Given: Yes Immunizations Up to Date: Yes - Review of Systems Constitutional: No Fever, No Chills Eyes: No Symptoms Ears, Nose, & Throat: Epistaxis, No Ear Pain, No Ear Discharge, No Hearing Changes, No Tinnitus, No Nose Pain, No Nose Congestion, No Nose Discharge, No Sinus Drainage, No Mouth Pain, No Mouth Swelling, No Loose Teeth, No Throat Pain , No Throat Swelling, No Hoarse, No Painful Swallowing, No Snoring, No Stridor Respiratory: No Cough, No Dyspnea Cardiac: No Chest Pain, No Edema, No Syncope Abdominal/Gastrointestinal: No Abdominal Pain, No Nausea, No Vomiting, No Diarrhea Genitourinary Symptoms: No Dysuria Musculoskeletal: No Back Pain, No Neck Pain Skin: No Rash Neurological: Dizziness, No Focal Weakness, No Sensory Changes Psychological: No Symptoms Endocrine: No Symptoms All Other Systems: Reviewed and Negative - Past Medical History Pertinent Past Medical History: Yes Neurological History: No Pertinent History ENT History: No Pertinent History Cardiac History: Hypertension, Other Respiratory History: Pneumonia Endocrine Medical History: Hypothyroidism Musculoskeletal History: Arthritis GI Medical History: No Pertinent History History: No Pertinent History Psycho-Social History: Anxiety, Depression Female Reproductive Disorders: No Pertinent History Other Medical History: VERICOSE VEINS - Past Surgical History Past Surgical History: Yes Neuro Surgical History: No Pertinent History Cardiac: No Pertinent History Respiratory: No Pertinent History Gastrointestinal: Appendectomy, Cholecystectomy Genitourinary: No Pertinent History Musculoskeletal: No Pertinent History Female Surgical History: Hysterectomy Other Surgical History: TYMPANOPLASTY- RIGHT EAR - Social History Smoking Status: Never smoker Exposure to second hand smoke: No Drug Use: none Patient Lives Alone: No - Female History Hx Now: No - Nursing Vital Signs Nursing Vital Signs: Initial Vital Signs Pulse Rate 98 H 02/07/18 13:47 Respiratory Rate 16 02/07/18 13:47 Blood Pressure 176/111 02/07/18 13:47 O2 Sat by Pulse Oximetry 95 02/07/18 13:47 Pain Scale Pain Intensity 6 - Physical Exam General Appearance: mild distress Eye Exam: PERRL/EOMI, eyes nml inspection Ears, Nose, Throat Exam: TMs normal, pharynx normal, moist mucous membranes, other (bleeding from left naris) Neck Exam: normal inspection, non-tender, supple, full range of motion Respiratory Exam: normal breath sounds Cardiovascular Exam: regular rate/rhythm, normal heart sounds, normal peripheral pulses Gastrointestinal/Abdomen Exam: soft, normal bowel sounds, No tenderness, No mass Back Exam: normal inspection, normal range of motion, No CVA tenderness, No vertebral tenderness Extremity Exam: normal inspection, normal range of motion, pelvis stable Neurologic Exam: alert, oriented x 3, cooperative, manager immunology II-XII nml as tested, normal mood/affect, nml cerebellar function, nml station & gait, sensation nml, No motor deficits Skin Exam: normal color, warm, dry, No rash SpO2 Interpretation: normal (95%) SpO2: 95 Oxygen Delivery: Room Air - Course Nursing assessment & vital signs reviewed: Yes EKG Interpreted by Me: RATE (93 bpm), Sinus Rhythm, NORMAL AXIS, Other (EKG: Sinus rhythm, 93 bpm, normal axis, no acute ST or T wave changes) - CT Exams Head CT Interpretation: Tele-radiologist Report (head CT without contrast: Impression : 1. No acute intracranial findings 2. Age related chronic microvascular ischemic and involutional changes.) Ordered Tests: Active Orders 24 hr Category Date Time Status EKG-ER Only STAT Care 02/07/18 14:14 Active IV Insertion STAT Care 02/07/18 14:04 Active HEAD WITHOUT CONTRAST [CT] Stat Exams 02/07/18 16:48 Taken CBC W DIFF Stat Lab 02/07/18 14:20 Completed CMP Stat Lab 02/07/18 14:20 Completed PROTIME WITH INR Stat Lab 02/07/18 14:20 Completed PTT Stat Lab 02/07/18 14:20 Completed Medication Summary Generic Name Dose Route Start Last Admin Trade Name Freq PRN Reason Stop Dose Admin Sodium Chloride 1,000 mls @ 100 mls/hr 02/07/18 14:15 02/07/18 14:30 Sodium Chloride 0.9% 1000 Ml IV 03/09/18 14:14 100 mls/hr .Q10H ESTEFANIA Administration Discontinued Medications Generic Name Dose Route Start Last Admin Trade Name Freq PRN Reason Stop Dose Admin Labetalol HCl 5 mg 02/07/18 15:51 02/07/18 16:02 Trandate 20 Mg/5 Ml Syringe IV 02/07/18 15:52 5 mg STAT ONE Administration Labetalol HCl Confirm 02/07/18 16:00 Trandate 20 Mg/5 Ml Syringe Administered 02/07/18 16:01 Dose 20 mg IV .STK-MED ONE Morphine Sulfate 2 mg 02/07/18 14:50 02/07/18 15:00 Morphine Sulfate 2 Mg Inj IV 02/07/18 14:51 2 mg STAT ONE Administration Morphine Sulfate Confirm 02/07/18 14:53 Morphine Sulfate 2 Mg Inj Administered 02/07/18 14:54 Dose 2 mg .ROUTE .STK-MED ONE Ondansetron HCl 4 mg 02/07/18 14:50 02/07/18 14:59 Zofran 4 Mg/2 Ml Vial IV 02/07/18 14:51 4 mg STAT ONE Administration Ondansetron HCl Confirm 02/07/18 14:53 Zofran 4 Mg/2 Ml Vial Administered 02/07/18 14:54 Dose 4 mg .ROUTE .STK-MED ONE Lab/Rad Data: Laboratory Result Diagrams 02/07/18 14:20 02/07/18 14:20 Laboratory Results 02/07/18 02/07/18 02/07/18 Range/Units 14:20 14:20 14:20 WBC 6.2 (4.0-10.5) K/mm3 RBC 5.01 (4.1-5.4) M/mm3 Hgb 14.8 (12.0-16.0) gm/dl Hct 44.3 (35-47) % MCV 88.4 (78-100) fl MCH 29.5 (26-32) pg MCHC 33.4 (32-36) g/dl RDW 14.3 H (11.5-14.0) % Plt Count 254 (150-450) K/mm3 MPV 9.9 H (6-9.5) fl Gran % 59.7 (36.0-66.0) % Eos # (Auto) 0.21 (0-0.5) Absolute Lymphs (auto) 1.54 (1.0-4.6) Absolute Monos (auto) 0.75 (0.0-1.3) Lymphocytes % 24.7 (24.0-44.0) % Monocytes % 12.0 (0.0-12.0) % Eosinophils % 3.4 (0.00-5.0) % Basophils % 0.2 (0.0-0.4) % Absolute Granulocytes 3.73 (1.4-6.9) Basophils # 0.01 (0-0.4) PT 12.2 (9.95-12.35) SECONDS INR 1.05 (0.8-3.0) APTT 32.8 (25.3-37.0) SECONDS Sodium 136 L (137-145) mmol/L Potassium 4.1 (3.5-5.1) mmol/L Chloride 99 (98-107) mmol/L Carbon Dioxide 25 (22-30) mmol/L Anion Gap 15.7 H (5-15) MEQ/L BUN 20 H (7-17) mg/dL Creatinine 0.83 (0.52-1.04) mg/dL Estimated GFR > 60.0 ML/MIN Glucose 154 H (74-106) mg/dL Calcium 10.2 (8.4-10.2) mg/dL Total Bilirubin 0.80 (0.2-1.3) mg/dL AST 23 (14-36) U/L ALT 21 (0-35) U/L Alkaline Phosphatase 87 (38-126) U/L Serum Total Protein 8.1 (6.3-8.2) g/dL Albumin 4.8 (3.5-5.0) g/dL - Progress Progress: improved Progress Note: 02/07/18 14:26 82-year-old white female with history of high blood pressure, aortic regurgitation, anxiety depression Arrives with a nosebleed for approximately 1 hour she apparently summoned the medics a nosebleed did not resolve with the pressure. Upon arrival into the emergency room patient was asked to blow her nose and nose clips were applied however she continued to have a large amount of bleeding therefore. Clips were removed and rapid Rhino was placed in the right naris. Patient had a little bit of oozing after placement of the rapid Rhino but bleeding. Stopped significantly she did require a little more air being placed in the balloon of the rapid Rhino. Patient does state that she has felt dizzy for the last few days therefore labs have been obtained this includes CBC CMP PT PTT and EKG. It should be noted patient is on aspirin and Plavix. 02/07/18 16:42 Patient's bleeding has stopped and the patient's right naris Patient did complain of a headache and some right eye pain. She was given morphine 2 mg Zofran 4 mg IV. Patient continued with a blood pressure which was elevated therefore she was given 5 mg of labetalol. Patient now complaining of right eye pain and headache Will go ahead and obtain CT of patient's head. Patient apparently has told the nurse that she does not want to go home. Will await CT results and discuss case with Dr. webb who is finish production manager for Dr. Caldwell. 02/07/18 17:24 Patient is feeling better however she states she is worried about going home patient was given labetalol 5 mg IV to get her blood pressure down currently 146 /90. I've also taken one milliliter of air from the patient's rapid Rhino in case pressure was a concern however the bladder on the rapid Rhino didn't feel soft. Head CT on this patient impression 1 no acute intercranial findings to age related chronic microvascular ischemic and involutional changes. I've discussed the patient's case with tracey who is finish production manager for Dr. Caldwell. Will place patient on observation telemetry. Will have patient resume her home medications these are to be reviewed with Dr. webb on admission. We'll check a CBC CMP in the morning. - Departure Time of Disposition: 17:27 Departure Disposition: Observation Clinical Impression: Epistaxis Hypertension Qualifiers: Hypertension type: unspecified Qualified Code(s): I10 - Essential (primary) hypertension Headache Qualifiers: Headache type: unspecified Headache chronicity pattern: acute headache Intractability: not intractable Qualified Code(s): R51 - Headache Condition: Fair Critical Care Time: No Referrals: DAKOTA DE SANTIAGO [Primary Care Provider] -
[2018-02-07] MEDS ORDERED: Sodium Chloride 0.9% 1000 ML 1,000 ML IV SCH (14:15)
[2018-02-07 14:26] LABS: BASOPHIL % 0.2 % (0.0-0.4); Basophil (Absolute #) 0.01 (0-0.4); Eosinophil % 3.4 % (0.00-5.0); Eosinophil (Absolute #) 0.21 (0-0.5); Granulocyte Absolute (ANC) 3.73 (1.4-6.9); Granulocytes % 59.7 % (36.0-66.0); Hematocrit 44.3 % (35-47); Hemoglobin 14.8 gm/dl (12.0-16.0); Lymphocyte (Absolute #) 1.54 (1.0-4.6); Lymphocytes % 24.7 % (24.0-44.0); Mean Cell Volume 88.4 fl (78-100); Mean Corpuscular Hemoglobin 29.5 pg (26-32); Mean Corpuscular Hgb Concent. 33.4 g/dl (32-36); Mean Platelet Volume 9.9 fl (6-9.5); Monocyte (Absolute #) 0.75 (0.0-1.3); Platelet Count 254 K/mm3 (150-450); Red Blood Count 5.01 M/mm3 (4.1-5.4); Red Cell Distribution Width 14.3 % (11.5-14.0); White Blood Count 6.2 K/mm3 (4.0-10.5)
[2018-02-07] MEDS ORDERED: Sodium Chloride 0.9% 1000 ML 1,000 ML ONE (14:26)
[2018-02-07 14:41] LABS: ALBUMIN 4.8 g/dL (3.5-5.0); ALKALINE PHOSPHATASE 87 U/L (38-126); ANION GAP 15.7 MEQ/L (5-15); BLOOD UREA NITROGEN 20 mg/dL (7-17); CHLORIDE 99 mmol/L (98-107); Calcium 10.2 mg/dL (8.4-10.2); Carbon Dioxide 25 mmol/L (22-30); Creatinine 1 0.83 mg/dL (0.52-1.04); Glucose 154 mg/dL (74-106); Potassium 4.1 mmol/L (3.5-5.1); SGOT/AST 23 U/L (14-36); SGPT/ALT 21 U/L (0-35); SODIUM 136 mmol/L (137-145); Total Protein 8.1 g/dL (6.3-8.2)
[2018-02-07 14:43] LABS: PTT 32.8 SECONDS (25.3-37.0)
[2018-02-07 14:44] LABS: INR 1.05 (0.8-3.0)
[2018-02-07] MEDS ORDERED: Zofran 4 MG/2 ML VIAL IV ONE (14:50)
[2018-02-07] MEDS ORDERED: MORPHINE SULFATE 2 MG INJ IV ONE (14:50)
[2018-02-07] MEDS ORDERED: Zofran 4 MG/2 ML VIAL ONE (14:53)
[2018-02-07] MEDS ORDERED: MORPHINE SULFATE 2 MG INJ ONE (14:53)
[2018-02-07] MEDS ORDERED: TRANDATE 20 MG/5 ML SYRINGE IV ONE ×2 (15:51→16:00)
[2018-02-07] MEDS ORDERED: Zofran 4 MG/2 ML VIAL IV PRN (17:52)
[2018-02-07] MEDS: ZOLOFT 50 MG TABLET PO SCH (18:50)
[2018-02-07] MEDS ORDERED: Ambien 5 MG Tablet PO PRN (19:37)
[2018-02-07] MEDS: TYLENOL 325 MG PO PRN (20:19)
[2018-02-07] MEDS: SYNTHROID 88 MCG PO SCH (20:22)
[2018-02-07] MEDS: Cardizem CD 240 MG PO SCH (20:25)
--- NOTE | 2018-02-07 20:29 | XRAY ---
Indication: Headache and nosebleed. Patient currently on Plavix therapy. Multiple contiguous axial images obtained through the head without contrast. Comparison: December 14, 2017. Stable age-appropriate global atrophy, mild periventricular degenerative microvascular ischemia, and tiny left basal ganglia remote lacunar infarct. No acute intracranial hemorrhage, abnormal extra-axial fluid collection, or mass effect. Fourth ventricle is midline without hydrocephalus. Bony calvarium intact. Again tiny fluid leveling in both sphenoid sinuses and right mastoidectomy. Impression: 1. Stable nonacute senile brain with minimal paranasal sinus disease. 2. No new or acute intracranial abnormalities. Comment: Preliminary interpretation was made by [facility]. No discrepancy. CTDI 60.53
[2018-02-08] MEDS: TYLENOL 325 MG PO PRN (01:10)
[2018-02-08 05:32] LABS: BASOPHIL % 0.3 % (0.0-0.4); Basophil (Absolute #) 0.02 (0-0.4); Eosinophil % 3.7 % (0.00-5.0); Eosinophil (Absolute #) 0.23 (0-0.5); Granulocyte Absolute (ANC) 3.49 (1.4-6.9); Granulocytes % 56.8 % (36.0-66.0); Hematocrit 39.7 % (35-47); Lymphocyte (Absolute #) 1.58 (1.0-4.6); Lymphocytes % 25.7 % (24.0-44.0); Mean Cell Volume 89.8 fl (78-100); Mean Corpuscular Hemoglobin 29.4 pg (26-32); Mean Corpuscular Hgb Concent. 32.7 g/dl (32-36); Mean Platelet Volume 10.2 fl (6-9.5); Monocyte (Absolute #) 0.83 (0.0-1.3); Monocytes % 13.5 % (0.0-12.0); Platelet Count 228 K/mm3 (150-450); Red Blood Count 4.42 M/mm3 (4.1-5.4); Red Cell Distribution Width 14.1 % (11.5-14.0); White Blood Count 6.2 K/mm3 (4.0-10.5)
[2018-02-08 05:48] LABS: ALKALINE PHOSPHATASE 72 U/L (38-126); ANION GAP 11.3 MEQ/L (5-15); BLOOD UREA NITROGEN 12 mg/dL (7-17); CHLORIDE 101 mmol/L (98-107); Calcium 9.3 mg/dL (8.4-10.2); Carbon Dioxide 26 mmol/L (22-30); Creatinine 1 0.53 mg/dL (0.52-1.04); Glucose 95 mg/dL (74-106); Potassium 3.9 mmol/L (3.5-5.1); SGOT/AST 21 U/L (14-36); SGPT/ALT 18 U/L (0-35); SODIUM 135 mmol/L (137-145); Total Protein 6.8 g/dL (6.3-8.2)
[2018-02-08] MEDS ORDERED: Sodium Chloride 0.9% 1000 ML 1,000 ML ONE (05:58)
[2018-02-08] MEDS: Sodium Chloride 0.9% 1000 ML 1,000 ML IV SCH ×2 (05:59→22:25)
--- NOTE | 2018-02-08 08:11 | PCM.HP ---
History of Present Illness - Chief Complaint Chief Complaint: Epistaxis, HTN, TATE Date: 02/08/18 History of Present Illness: is a 82 year old female. on plavix and aspirin after previous history of TIAs who developed epistaxis after several days of having a dry and running nose. She now has sever pain in her head is off balance and feels very unsteady and unsafe walking with the nasal tamponade device in her right nare. It is causing her significant anxiety and pain but no fever or chills and no longer bleeding. She has never had anything like this in the past. - Review of Systems Constitutional: Fatigue, No Fever, No Chills Eyes: No Symptoms Ears, Nose, & Throat: Nose Discharge, Sinus Drainage, Epistaxis, Mouth Pain Respiratory: No Cough, No Short Of Breath Cardiac: No Chest Pain, No Edema, No Syncope Abdominal/Gastrointestinal: No Abdominal Pain, No Nausea, No Vomiting, No Diarrhea Genitourinary Symptoms: No Dysuria Musculoskeletal: No Back Pain, No Neck Pain Skin: No Rash Neurological: Dizziness, Gait Changes, Headache, No Focal Weakness, No Sensory Changes Psychological: No Symptoms Endocrine: No Symptoms Hematologic/Lymphatic: Easy Bleeding, Easy Bruising Immunological/Allergic: No Symptoms Medications & Allergies Home Medications: Home Medication List Diltiazem HCl [Cartia Xt] 240 mg PO 0700 12/14/17 [History Confirmed 02/08/18] Levothyroxine Sodium 88 Mcg [Synthroid 88 Mcg] 88 mcg HS 12/14/17 [ History Confirmed 02/07/18] Sertraline HCl 25 mg 1700 12/14/17 [History Confirmed 02/07/18] Aspirin EC 81 mg [Ecotrin 81 mg] 81 mg PO DAILY #30 tablet.ec 12/15/17 [ Rx Confirmed 02/07/18] Clopidogrel Bisulfate 75 mg [PLAVIX 75 MG Tablet] 75 mg PO DAILY #30 tablet 12/15/17 [Rx Confirmed 02/07/18] Pravastatin Sodium 10 mg PO DAILY #30 tablet 12/15/17 [Rx Confirmed 02/07/18] Allergies/Adverse Reactions: Allergies Allergy/AdvReac Type Severity Reaction Status Date / Time clindamycin AdvReac Verified 12/14/17 11:58 - Past Medical History Past Medical History: Yes Neurological History: No Pertinent History ENT History: No Pertinent History Cardiac History: Hypertension, Other Respiratory History: Pneumonia Endocrine Medical History: Hypothyroidism Musculoskelatal History: Arthritis GI Medical History: No Pertinent History History: No Pertinent History Pyscho-Social History: Anxiety, Depression Reproductive Disorders: No Pertinent History Comment: VERICOSE VEINS - Female History Are you now?: No - Past Surgical History Past Surgical History: Yes Neuro Surgical History: No Pertinent History Cardiac History: No Pertinent History Respiratory Surgery: No Pertinent History GI Surgical History: Appendectomy, Cholecystectomy Genitourinary Surgical Hx: No Pertinent History Musculskeletal Surgical Hx: No Pertinent History Female Surgical History: Hysterectomy Other Surgical History: TYMPANOPLASTY- RIGHT EAR - Social History Smoking Status: Never smoker Exposure to second hand smoke: No Alcohol: None Drug Use: none - Physical Exam Vital Signs: Vital Signs - 24 hr Temp Pulse Resp BP Pulse Ox 02/08/18 07:30 98.1 F 71 18 173/91 94 L 02/08/18 07:24 95 02/08/18 04:00 98.1 F 68 18 174/96 94 L 02/08/18 00:00 97.7 F 72 13 136/87 95 02/07/18 20:00 98.2 F 82 18 165/88 94 L 02/07/18 19:55 98.2 F 57 L 20 154/69 97 02/07/18 19:04 95 02/07/18 17:52 95 02/07/18 17:28 95 02/07/18 17:07 93 H 20 147/95 98 02/07/18 13:47 98 H 16 176/111 95 Oxygen-Last 24 hours O2 Percentage 3 Liters = 32% General Appearance: no apparent distress, alert, anxiety Neurologic Exam: alert, oriented x 3, cooperative, normal mood/affect, nml cerebellar function, nml station & gait, sensation nml, No motor deficits Eye Exam: PERRL/EOMI, eyes nml inspection Ears, Nose, Throat Exam: pharynx normal, moist mucous membranes, other (nasal tamponade in right nare with no complications noted no continued bleeding) Neck Exam: normal inspection, non-tender, supple, full range of motion Respiratory Exam: normal breath sounds, lungs clear, No respiratory distress Cardiovascular Exam: regular rate/rhythm, normal heart sounds, normal peripheral pulses Gastrointestinal/Abdomen Exam: soft, normal bowel sounds, No tenderness, No mass Back Exam: normal inspection, normal range of motion, No CVA tenderness, No vertebral tenderness Extremity Exam: normal inspection, normal range of motion, pelvis stable Skin Exam: normal color, warm, dry, No rash Lymphatic Exam: No adenopathy Results - Labs Lab/Micro Results: Lab Results-Last 24 Hours 02/07/18 02/07/18 02/07/18 Range/Units 14:20 14:20 14:20 WBC 6.2 (4.0-10.5) K/mm3 RBC 5.01 (4.1-5.4) M/mm3 Hgb 14.8 (12.0-16.0) gm/dl Hct 44.3 (35-47) % MCV 88.4 (78-100) fl MCH 29.5 (26-32) pg MCHC 33.4 (32-36) g/dl RDW 14.3 H (11.5-14.0) % Plt Count 254 (150-450) K/mm3 MPV 9.9 H (6-9.5) fl Gran % 59.7 (36.0-66.0) % Eos # (Auto) 0.21 (0-0.5) Absolute Lymphs (auto) 1.54 (1.0-4.6) Absolute Monos (auto) 0.75 (0.0-1.3) Lymphocytes % 24.7 (24.0-44.0) % Monocytes % 12.0 (0.0-12.0) % Eosinophils % 3.4 (0.00-5.0) % Basophils % 0.2 (0.0-0.4) % Absolute Granulocytes 3.73 (1.4-6.9) Basophils # 0.01 (0-0.4) PT 12.2 (9.95-12.35) SECONDS INR 1.05 (0.8-3.0) APTT 32.8 (25.3-37.0) SECONDS Sodium 136 L (137-145) mmol/L Potassium 4.1 (3.5-5.1) mmol/L Chloride 99 (98-107) mmol/L Carbon Dioxide 25 (22-30) mmol/L Anion Gap 15.7 H (5-15) MEQ/L BUN 20 H (7-17) mg/dL Creatinine 0.83 (0.52-1.04) mg/dL Estimated GFR > 60.0 ML/MIN Glucose 154 H (74-106) mg/dL Calcium 10.2 (8.4-10.2) mg/dL Total Bilirubin 0.80 (0.2-1.3) mg/dL AST 23 (14-36) U/L ALT 21 (0-35) U/L Alkaline Phosphatase 87 (38-126) U/L Serum Total Protein 8.1 (6.3-8.2) g/dL Albumin 4.8 (3.5-5.0) g/dL 02/08/18 02/08/18 Range/Units 04:55 04:55 WBC 6.2 (4.0-10.5) K/mm3 RBC 4.42 (4.1-5.4) M/mm3 Hgb 13.0 (12.0-16.0) gm/dl Hct 39.7 (35-47) % MCV 89.8 (78-100) fl MCH 29.4 (26-32) pg MCHC 32.7 (32-36) g/dl RDW 14.1 H (11.5-14.0) % Plt Count 228 (150-450) K/mm3 MPV 10.2 H (6-9.5) fl Gran % 56.8 (36.0-66.0) % Eos # (Auto) 0.23 (0-0.5) Absolute Lymphs (auto) 1.58 (1.0-4.6) Absolute Monos (auto) 0.83 (0.0-1.3) Lymphocytes % 25.7 (24.0-44.0) % Monocytes % 13.5 H (0.0-12.0) % Eosinophils % 3.7 (0.00-5.0) % Basophils % 0.3 (0.0-0.4) % Absolute Granulocytes 3.49 (1.4-6.9) Basophils # 0.02 (0-0.4) PT (9.95-12.35) SECONDS INR (0.8-3.0) APTT (25.3-37.0) SECONDS Sodium 135 L (137-145) mmol/L Potassium 3.9 (3.5-5.1) mmol/L Chloride 101 (98-107) mmol/L Carbon Dioxide 26 (22-30) mmol/L Anion Gap 11.3 (5-15) MEQ/L BUN 12 (7-17) mg/dL Creatinine 0.53 (0.52-1.04) mg/dL Estimated GFR > 60.0 ML/MIN Glucose 95 (74-106) mg/dL Calcium 9.3 (8.4-10.2) mg/dL Total Bilirubin 0.80 (0.2-1.3) mg/dL AST 21 (14-36) U/L ALT 18 (0-35) U/L Alkaline Phosphatase 72 (38-126) U/L Serum Total Protein 6.8 (6.3-8.2) g/dL Albumin 4.0 (3.5-5.0) g/dL - Radiology Impressions Radiology Exams & Impressions: Radiology Procedures Category Date Time Status HEAD WITHOUT CONTRAST [CT] Stat Exams 02/07/18 16:48 Completed Assessment/Plan (1) Epistaxis Current Visit: Yes Status: Acute Onset Date: ~02/07/18 Assessment & Plan: will try to leave the device in the right nare for minimum of 48 hours she has been on plavix and aspirin no further bleeding at this time but with the device she does not feel safe walking due to it disrupting her balance she is having signficant discomfort and pain she is unlikely to tolerate it well over 48 hours so will hold off antibiotic at this point and work on pain and anxiety control and improving her blood pressure. Code(s): R04.0 - EPISTAXIS (2) Essential (primary) hypertension Current Visit: Yes Status: Chronic Code(s): I10 - ESSENTIAL (PRIMARY) HYPERTENSION (3) Anxiety Current Visit: Yes Status: Chronic Code(s): F41.9 - ANXIETY DISORDER, UNSPECIFIED (4) Headache Current Visit: Yes Status: Acute Onset Date: ~02/07/18 Qualifiers: Headache type: unspecified Headache chronicity pattern: acute headache Intractability: not intractable Qualified Code(s): R51 - Headache Code(s): R51 - HEADACHE (5) Unstable gait Current Visit: Yes Status: Acute Code(s): R26.81 - UNSTEADINESS ON FEET
[2018-02-08] MEDS: Ativan 2 MG/1 ML VIAL IV PRN ×2 (08:24→17:35)
[2018-02-08] MEDS ORDERED: NON-FORMULARY ITEM (Pravastatin Sodium [Pravastatin Sodium] 10 MG) PO SCH (10:00)
[2018-02-08] MEDS: Zocor 10MG PO SCH (10:40)
[2018-02-08] MEDS ORDERED: SUBLIMAZE 100 MCG/2 ML IV ONE (12:50)
[2018-02-08] MEDS ORDERED: SUBLIMAZE 100 MCG/2 ML IV PRN (15:56)
[2018-02-08] MEDS: ZOLOFT 50 MG TABLET PO SCH (17:04)
[2018-02-08] MEDS: Cardizem CD 240 MG PO SCH (17:05)
[2018-02-08] MEDS ORDERED: APRESOLINE 20 MG/ML INJ IV PRN (17:55)
[2018-02-08] MEDS: SYNTHROID 88 MCG PO SCH (22:05)
[2018-02-09] MEDS ORDERED: Cardizem CD 240 MG PO SCH (07:00)
[2018-02-09] MEDS: Zocor 10MG PO SCH (10:47)
[2018-02-09] MEDS: TYLENOL 325 MG PO PRN (12:12)
[2018-02-09 12:13] VITALS: BP 131/72; PULSE 83; O2SAT 95
[2018-02-09] MEDS: Ativan 2 MG/1 ML VIAL IV PRN (14:26)
[2018-02-09] MEDS ORDERED: ARZOL Silver Nitrate Applicator TP ONE (14:45)
--- NOTE | 2018-02-09 14:46 | PCM.DS ---
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 she had a nose bleed after having several days of runny nose. the bleeding was perfuse and unrelenting and she presented to the ED> she had to have rhino rocket placed and bleeding stopped. She was unsteady and had difficulty walking and severe pain from the device and was observed in the hospital. The bleeding was no further. After 48 hours the device was removed. There was a small visible vessel on anterior nasal septum that was cauterized with silver nitrate but was not actively bleeding at the time as well as a few small vessels under the mucosa that appeared to be slightly oozing some blood and these were cauterized as well with the silver nitrate with no complications. She had no further bleeding and is discharged home with instructions to avoid blowing or rubbing her nose and to stay off the anticoagulants and zoloft until her f/u appointment. - Vitals & Intake/Output Vital Signs: Vital Signs Temperature 98.3 F 02/09/18 11:10 Pulse Rate 83 02/09/18 11:10 Respiratory Rate 20 02/09/18 11:10 Blood Pressure 131/72 02/09/18 11:10 O2 Sat by Pulse Oximetry 95 02/09/18 11:10 Oxygen-Last Documented O2 Percentage 3 Liters = 32% Intake & Output: Intake & Output 02/07/18 02/08/18 02/09/18 02/10/18 11:59 11:59 11:59 11:59 Intake Total 1343 2844 520 Output Total 1350 3250 Balance -7 -406 520 Weight 65 kg - Lab Result Diagrams: 02/08/18 04:55 02/08/18 04:55 - Radiology Exams Ordered Rad Exams-Entire Visit: Radiology Procedures Category Date Time Status HEAD WITHOUT CONTRAST [CT] Stat Exams 02/07/18 16:48 Completed Discharge Exam General Appearance: no apparent distress, alert Neurologic Exam: alert, oriented x 3, cooperative, normal mood/affect, nml cerebellar function, sensation nml, No motor deficits Skin Exam: normal color, warm, dry Eye Exam: PERRL, EOMI, eyes nml inspection Ears, Nose, Throat Exam: normal ENT inspection, pharynx normal, moist mucous membranes Neck Exam: normal inspection, non-tender, supple, full range of motion Respiratory Exam: normal breath sounds, lungs clear, No respiratory distress Cardiovascular Exam: regular rate/rhythm, normal heart sounds Gastrointestinal/Abdomen Exam: soft, No tenderness, No mass Extremity Exam: normal inspection, normal range of motion Back Exam: normal inspection, normal range of motion, No CVA tenderness, No vertebral tenderness Pelvic Exam: deferred Rectal Exam: deferred Final Diagnosis/Problem List - Final Discharge Diagnosis/Problem (1) Epistaxis Status: Acute Onset Date: ~02/07/18 (2) Essential (primary) hypertension Status: Chronic (3) Anxiety Status: Chronic (4) Headache Status: Acute Onset Date: ~02/07/18 (5) Unstable gait Status: Acute - Discharge Discharge Date: 02/09/18 Disposition: Home, Self-Care Condition: Good Prescriptions: Continue Levothyroxine Sodium 88 Mcg [Synthroid 88 Mcg] 88 mcg HS Diltiazem HCl [Cartia Xt] 240 mg PO 0700 Pravastatin Sodium 10 mg PO DAILY #30 tablet Discontinued Sertraline HCl 25 mg 1700 Aspirin EC 81 mg [Ecotrin 81 mg] 81 mg PO DAILY #30 tablet.ec Clopidogrel Bisulfate 75 mg [PLAVIX 75 MG Tablet] 75 mg PO DAILY #30 tablet Instructions: High Blood Pressure in Adults, Nosebleeds (DC) Follow up with: DAKOTA DE SANTIAGO [Primary Care Provider] - 02/15/18 10:30 am Forms: Discharge Instructions
== END 2018-02-09 15:15 | disposition home or self-care (01) ==
LOC: ED 13:47 → MED SURG 17:44
PROVIDERS: ADMIT Internal Medicine; ATTEND Family Medicine
DX: R04.0 Epistaxis (principal); I10 Essential (primary) hypertension; F41.9 Anxiety disorder, unspecified; R51 Headache; R26.81 Unsteadiness on feet; Z86.73 Personal history of transient ischemic attack (TIA), and cerebral infarction without residual deficits; E03.9 Hypothyroidism, unspecified; M19.90 Unspecified osteoarthritis, unspecified site; F32.9 Major depressive disorder, single episode, unspecified
CPT/HCPCS: 36000; 36415; 70450; 80053; 85025; 85610; 85730; 93005; 93268; 94762; 96360; 96374; 96375; 99285; G0378; J0360; J2060; J2270; J2405; J3010; A9270-GY

== ENCOUNTER 2018-02-11 07:58 | Emergency (ER) | payer MEDICARE, BC ==
--- NOTE | 2018-02-11 08:34 | ERPHSYRPT ---
- History of Present Illness Time Seen by Provider: 02/11/18 08:05 Source: patient, EMS Patient Subjective Stated Complaint: Pt states "I had a nose bleed last weekend and they put something in there and then they took it out on thursday. I felt a clot last night and then this morning around 7 oclock it started to run again." Triage Nursing Assessment: PT alert and oriented X 3, skin pwd. pt has dried blood on the right nares. Pt states she uses gas heat and a room humidifier but she blows her nose allot. there is no active bleeding at this time. Physician History: 82 y/o white female on plavix presents with recent bleeding from right nostril this am. it stopped this am manager camp but wanted it re evaluated so ems brought her here. pt was seen here on Thursday for nosebleed. packing placed. pt returned 48 hours later to have packing removed. later the day pts packing removed, recurrence of nosebleed. pt seen at her pcp office who cauterized 2 areas. this am she had a recurrence of her nosebleed from her right nostril. it stopped manager camp from ems. Timing/Duration: abrupt onset, this morning Severity: mild ENT Location: nose Prearrival Treatment: squeezing nostrils Modifying Factors: Improves With: nothing Associated Symptoms: epistaxis Allergies/Adverse Reactions: nitrofurantoin [From Macrobid] Allergy (Mild, Verified 02/11/18 08:11) Rash fentanyl Adverse Reaction (Intermediate, Verified 02/11/18 08:11) hallucinations clindamycin Adverse Reaction (Verified 12/14/17 11:58) Home Medications: Diltiazem HCl [Cartia Xt] 240 mg PO 0700 12/14/17 [History] Levothyroxine Sodium 88 Mcg [Synthroid 88 Mcg] 88 mcg HS 12/14/17 [History ] Hx Tetanus, Diphtheria Vaccination/Date Given: Yes Hx Influenza Vaccination/Date Given: Yes Hx Pneumococcal Vaccination/Date Given: Yes Immunizations Up to Date: Yes - Review of Systems Constitutional: No Symptoms, No Fever Eyes: No Symptoms, No Discharge, No Eye Pain Ears, Nose, & Throat: Other (bleeding from right nostril) Respiratory: No Symptoms, No Cough, No Dyspnea, No Stridor, No Wheezing Cardiac: No Symptoms, No Chest Pain, No Palpitations, No Syncope Abdominal/Gastrointestinal: No Symptoms, No Abdominal Pain, No Nausea, No Vomiting, No Diarrhea Genitourinary Symptoms: No Symptoms, No Dysuria, No Frequency, No Hematuria Musculoskeletal: No Symptoms Skin: No Symptoms Neurological: No Symptoms Psychological: No Symptoms Endocrine: No Symptoms Hematologic/Lymphatic: No Symptoms Immunological/Allergic: No Symptoms All Other Systems: Reviewed and Negative - Past Medical History Pertinent Past Medical History: Yes Neurological History: No Pertinent History ENT History: No Pertinent History Cardiac History: Hypertension, Other Respiratory History: Pneumonia Endocrine Medical History: Hypothyroidism Musculoskeletal History: Arthritis GI Medical History: No Pertinent History History: No Pertinent History Psycho-Social History: Anxiety, Depression Female Reproductive Disorders: No Pertinent History Other Medical History: VERICOSE VEINS - Past Surgical History Past Surgical History: Yes Neuro Surgical History: No Pertinent History Cardiac: No Pertinent History Respiratory: No Pertinent History Gastrointestinal: Appendectomy, Cholecystectomy Genitourinary: No Pertinent History Musculoskeletal: No Pertinent History Female Surgical History: Hysterectomy Other Surgical History: TYMPANOPLASTY- RIGHT EAR - Social History Smoking Status: Never smoker Exposure to second hand smoke: No Drug Use: none Patient Lives Alone: No - Female History Hx Now: No - Nursing Vital Signs Nursing Vital Signs: Initial Vital Signs Temperature 98.2 F 02/11/18 08:02 Pulse Rate 86 02/11/18 08:02 Respiratory Rate 16 02/11/18 08:02 Blood Pressure 153/80 02/11/18 08:02 O2 Sat by Pulse Oximetry 96 02/11/18 08:02 Pain Scale Pain Intensity 0 - Physical Exam General Appearance: no apparent distress, alert Eye Exam: bilateral eye: normal inspection, PERRL, EOMI Ear Exam: bilateral ear: auricle normal, canal normal, TM normal Nasal Exam: dried blood (right nostril) Throat Exam: normal, pharynx normal, moist mucus membranes, No dental tenderness , No mandibular swelling, No maxillary swelling, No pharynx swelling, No pharynx tenderness, No tongue swollen Neck Exam: normal inspection, non-tender, supple, full range of motion Cardiovascular/Respiratory Exam: chest non-tender, normal breath sounds, regular rate/rhythm, heart sounds normal Abdominal Exam: non-tender, soft, No tenderness Neurologic Exam: alert, oriented x 3, cooperative, yeast washer II-XII nml as tested, normal mood/affect Skin Exam: normal color, warm, dry SpO2 Interpretation: normal SpO2: 96 Oxygen Delivery: Room Air - Course Nursing assessment & vital signs reviewed: Yes Ordered Tests: Medication Summary Discontinued Medications Generic Name Dose Route Start Last Admin Trade Name Wendy PRN Reason Stop Dose Admin Phenylephrine HCl 15 ml 02/11/18 08:41 Neosynephrine 0.5% Nasal Wall/Drops NS 02/11/18 08:42 STAT ONE - Progress Progress: improved Progress Note: 02/11/18 08:37 pt has no active bleeding. she has had packing placed, packing removal and cauterization with mild short lived recurrence of rifght nostril bleeding. she needs management by an ENT specialist. will make arrangements for this appt. will spray with neosynephrine and clamp nose now. Counseled pt/family regarding: diagnosis, need for follow-up - Departure Time of Disposition: 08:40 Departure Disposition: Home Clinical Impression: Epistaxis Condition: Stable Critical Care Time: No Referrals: DAKOTA DE SANTIAGO [Primary Care Provider] - Additional Instructions: stop plavix. follow up with ENT specialist. use neosynephrine and nasal clamps for minor recurrences.
[2018-02-11] MEDS ORDERED: NEOSYNEPHRINE 0.5% NASAL SPRAY/DROPS NS ONE (08:41)
[2018-02-11 09:09] VITALS: BP 148/84; PULSE 82; O2SAT 98
[2018-02-11] MEDS ORDERED: NEOSYNEPHRINE 0.5% NASAL SPRAY/DROPS ONE (09:10)
== END 2018-02-11 09:50 | disposition home or self-care (01) ==
LOC: ED 07:58
DX: R04.0 Epistaxis (principal); Z79.01 Long term (current) use of anticoagulants; Z79.899 Other long term (current) drug therapy
CPT/HCPCS: 99283; A9270-GY

== ENCOUNTER 2018-03-20 07:08 | Emergency (ER) | payer MEDICARE, BC ==
[2018-03-20] MEDS ORDERED: TYLENOL 325 MG PO ONE (07:37)
--- NOTE | 2018-03-20 07:43 | ERPHSYRPT ---
- History of Present Illness Time Seen by Provider: 03/20/18 07:32 Source: patient Exam Limitations: no limitations Patient Subjective Stated Complaint: patietn states she received her shingles vaccine yesterday afternoon and woke up at 1 am and she was vomitting sweating and had a headache Triage Nursing Assessment: pt alert and oreitnedx3, able to ambulate with assistance, gait is steady, mild weakness, lung sounds clear and diminished, pulses equal bilateral radius, no edema noted in lower extremities pupils perrla 2 . patient skin warm dry and pale. Physician History: 82-year-old white female with history of high blood pressure, pneumonia, hypothyroidism, anxiety, arthritis, depression, varicose veins. Patient arrives with complaint of aching all over sliding symptoms since 1:00 this morning patient states she received a shingles vaccine yesterday. Patient states she awoke with the same symptoms went back to sleep and awoke again so called an ambulance. Patient states she did feel nauseous no urinary symptoms no chest pain no shortness of breath. Past medical history includes high blood pressure, pneumonia, hypothyroidism, arthritis, anxiety, depression, varicose veins. Past surgical history includes cholecystectomy, appendectomy, hysterectomy, tympanostomy of the right ear. Social history is negative Timing/Duration: today (1 AM today) Severity: moderate Modifying Factors: Improves With: other (patient received shingles virus yesterday) Associated Symptoms: nausea, chills, malaise, weakness, other (aching all over) , No vomiting, No abdominal pain, No shortness of breath, No heartburn, No diaphoresis, No cough, No chest pain, No fever, No headaches, No loss of appetite, No rash, No syncope, No seizure Allergies/Adverse Reactions: nitrofurantoin [From Macrobid] Allergy (Mild, Verified 02/11/18 08:11) Rash fentanyl Adverse Reaction (Intermediate, Verified 02/11/18 08:11) hallucinations clindamycin Adverse Reaction (Verified 12/14/17 11:58) Home Medications: Diltiazem HCl [Cartia Xt] 240 mg PO 0700 12/14/17 [History] Levothyroxine Sodium 88 Mcg [Synthroid 88 Mcg] 88 mcg HS 12/14/17 [History ] Sertraline HCl 1 tab PO DAILY 03/20/18 [History] Hx Tetanus, Diphtheria Vaccination/Date Given: Yes Hx Influenza Vaccination/Date Given: Yes Hx Pneumococcal Vaccination/Date Given: Yes Immunizations Up to Date: Yes - Review of Systems Constitutional: Chills, Malaise, Weakness, No Fatigue, No Lethargy, No Night Sweats, No Weight Loss Eyes: No Symptoms Ears, Nose, & Throat: No Symptoms Respiratory: No Cough, No Dyspnea Cardiac: No Chest Pain, No Edema, No Syncope Abdominal/Gastrointestinal: No Abdominal Pain, No Nausea, No Vomiting, No Diarrhea Genitourinary Symptoms: No Dysuria Musculoskeletal: Arthralgias, Joint Pain (left hip pain), No Back Pain, No Neck Pain, No Deformity, No Fall, No Injury, No Joint Redness, No Joint Swelling, No Myalgias, No Other Skin: No Rash Neurological: No Dizziness, No Focal Weakness, No Sensory Changes Psychological: No Symptoms Endocrine: No Symptoms All Other Systems: Reviewed and Negative (this lady get up and get) - Past Medical History Pertinent Past Medical History: Yes Neurological History: No Pertinent History ENT History: No Pertinent History Cardiac History: Hypertension, Other Respiratory History: Pneumonia Endocrine Medical History: Hypothyroidism Musculoskeletal History: Arthritis GI Medical History: No Pertinent History History: No Pertinent History Psycho-Social History: Anxiety, Depression Female Reproductive Disorders: No Pertinent History Other Medical History: VERICOSE VEINS - Past Surgical History Past Surgical History: Yes Neuro Surgical History: No Pertinent History Cardiac: No Pertinent History Respiratory: No Pertinent History Gastrointestinal: Appendectomy, Cholecystectomy Genitourinary: No Pertinent History Musculoskeletal: No Pertinent History Female Surgical History: Hysterectomy Other Surgical History: TYMPANOPLASTY- RIGHT EAR - Social History Smoking Status: Never smoker Exposure to second hand smoke: No Drug Use: none Patient Lives Alone: No - Female History Hx Now: No - Nursing Vital Signs Nursing Vital Signs: Initial Vital Signs Temperature 97.6 F 03/20/18 07:10 Pulse Rate 94 H 03/20/18 07:10 Respiratory Rate 18 03/20/18 07:10 Blood Pressure 152/84 03/20/18 07:10 O2 Sat by Pulse Oximetry 94 L 03/20/18 07:10 Pain Scale Pain Intensity [] 6 Pain Intensity 2 - Physical Exam General Appearance: alert Eye Exam: PERRL/EOMI, eyes nml inspection Ears, Nose, Throat Exam: normal ENT inspection, TMs normal, pharynx normal, moist mucous membranes Neck Exam: normal inspection, non-tender, supple, full range of motion Respiratory Exam: normal breath sounds, lungs clear, No respiratory distress Cardiovascular Exam: regular rate/rhythm, normal heart sounds, normal peripheral pulses Gastrointestinal/Abdomen Exam: soft, normal bowel sounds, No tenderness, No mass Back Exam: normal inspection, normal range of motion, No CVA tenderness, No vertebral tenderness Extremity Exam: normal inspection, normal range of motion, pelvis stable Neurologic Exam: alert, oriented x 3, cooperative, electrical fitter II-XII nml as tested, normal mood/affect, nml cerebellar function, nml station & gait, sensation nml, No motor deficits Skin Exam: normal color, warm, dry, No rash Lymphatic Exam: No adenopathy SpO2 Interpretation: normal (94him.) SpO2: 94 Oxygen Delivery: Room Air - Course Nursing assessment & vital signs reviewed: Yes EKG Interpreted by Me: RATE (85 bpm), Sinus Rhythm, NORMAL AXIS, Other (EKG: Sinus rhythm with artifact, 85 bpm, normal axis, no acute ST or T wave changes noted, no change as compared to February 07, 2018) - Radiology Exams Chest X-ray Interpretation: Discussed w/ radiologist (stablee, non acute chest with chronic features) Pelvis X-ray Interpretation: Discussed w/ radiologist (pelvic phlebolith and mild lower lumbar degenerative spodylosis. No other bony, articular, or soft tissue abnormalities) Ordered Tests: Active Orders 24 hr Category Date Time Status EKG-ER Only STAT Care 03/20/18 07:37 Active IV Insertion STAT Care 03/20/18 07:37 Active CHEST 1 VIEW (PORTABLE) Stat Exams 03/20/18 07:38 Completed PELVIS (1 OR 2 VIEWS) Stat Exams 03/20/18 07:43 Completed AMYLASE Stat Lab 03/20/18 08:00 Completed BLOOD CULTURE Stat Lab 03/20/18 08:00 Received CBC W DIFF Stat Lab 03/20/18 08:00 Completed CMP Stat Lab 03/20/18 08:00 Completed LIPASE Stat Lab 03/20/18 08:00 Completed Lactic Acid Stat Lab 03/20/18 07:37 Completed TROPONIN Q3H Lab 03/20/18 08:00 Completed TROPONIN Q3H Lab 03/20/18 10:45 Ordered TROPONIN Q3H Lab 03/20/18 13:45 Ordered TROPONIN Q3H Lab 03/20/18 16:45 Ordered TROPONIN Q3H Lab 03/20/18 19:45 Ordered UA W/RFX UR CULTURE Stat Lab 03/20/18 09:00 Completed Medication Summary Generic Name Dose Route Start Last Admin Trade Name Wendy PRN Reason Stop Dose Admin Sodium Chloride 1,000 mls @ 100 mls/hr 03/20/18 07:45 03/20/18 07:49 Sodium Chloride 0.9% 1000 Ml IV 04/19/18 07:44 100 mls/hr .Q10H ESTEFANIA Administration Discontinued Medications Generic Name Dose Route Start Last Admin Trade Name Wendy PRN Reason Stop Dose Admin Acetaminophen 650 mg 03/20/18 07:37 03/20/18 07:48 Tylenol 325 Mg PO 03/20/18 07:38 650 mg STAT ONE Administration Acetaminophen Confirm 03/20/18 07:46 Tylenol 325 Mg Administered 03/20/18 07:47 Dose 650 mg .ROUTE .STJibestream-MED ONE Lab/Rad Data: Laboratory Result Diagrams 03/20/18 08:00 03/20/18 08:00 Laboratory Results 03/20/18 03/20/18 03/20/18 Range/Units Unknown 09:00 08:00 WBC (4.0-10.5) K/mm3 RBC (4.1-5.4) M/mm3 Hgb (12.0-16.0) gm/dl Hct (35-47) % MCV (78-100) fl MCH (26-32) pg MCHC (32-36) g/dl RDW (11.5-14.0) % Plt Count (150-450) K/mm3 MPV (6-9.5) fl Gran % (36.0-66.0) % Eos # (Auto) (0-0.5) Absolute Lymphs (auto) (1.0-4.6) Absolute Monos (auto) (0.0-1.3) Lymphocytes % (24.0-44.0) % Monocytes % (0.0-12.0) % Eosinophils % (0.00-5.0) % Basophils % (0.0-0.4) % Absolute Granulocytes (1.4-6.9) Basophils # (0-0.4) Sodium (137-145) mmol/L Potassium (3.5-5.1) mmol/L Chloride (98-107) mmol/L Carbon Dioxide (22-30) mmol/L Anion Gap (5-15) MEQ/L BUN (7-17) mg/dL Creatinine (0.52-1.04) mg/dL Estimated GFR ML/MIN Glucose (74-106) mg/dL Lactic Acid (0.4-2.0) Calcium (8.4-10.2) mg/dL Total Bilirubin (0.2-1.3) mg/dL AST (14-36) U/L ALT (0-35) U/L Alkaline Phosphatase (38-126) U/L Troponin I < 0.012 (0.000-0.034) ng/mL Serum Total Protein (6.3-8.2) g/dL Albumin (3.5-5.0) g/dL Amylase (30-110) U/L Lipase (23-300) U/L Urine Color YELLOW (YELLOW) Urine Appearance CLEAR (CLEAR) Urine pH 7.0 (5-6) Ur Specific [place] 1.005 (1.005-1.025) Urine Protein NEGATIVE (Negative) Urine Ketones TRACE (NEGATIVE) Urine Blood NEGATIVE (0-5) Jason/ul Urine Nitrite NEGATIVE (NEGATIVE) Urine Bilirubin NEGATIVE (NEGATIVE) Urine Urobilinogen NEGATIVE (0-1) mg/dL Ur Leukocyte Esterase NEGATIVE (NEGATIVE) Urine WBC (Auto) 0-2 (0-5) /HPF Urine RBC (Auto) NONE (0-2) /HPF U Epithel Cells (Auto) RARE (FEW) /HPF Urine Bacteria (Auto) NONE (NEGATIVE) /HPF Urine Mucus (Auto) SLIGHT (NEGATIVE) /HPF Urine Culture Reflexed NO (NO) Urine Glucose NEGATIVE (NEGATIVE) mg/dL Influenza Type A Ag NEGATIVE (NEGATIVE) Influenza Type B Ag NEGATIVE (NEGATIVE) RSV (PCR) NEGATIVE (Negative) 03/20/18 03/20/18 03/20/18 Range/Units 08:00 08:00 07:37 WBC 8.8 (4.0-10.5) K/mm3 RBC 4.81 (4.1-5.4) M/mm3 Hgb 14.2 (12.0-16.0) gm/dl Hct 42.9 (35-47) % MCV 89.2 (78-100) fl MCH 29.5 (26-32) pg MCHC 33.1 (32-36) g/dl RDW 14.1 H (11.5-14.0) % Plt Count 257 (150-450) K/mm3 MPV 10.6 H (6-9.5) fl Gran % 84.7 H (36.0-66.0) % Eos # (Auto) 0.03 (0-0.5) Absolute Lymphs (auto) 0.63 L (1.0-4.6) Absolute Monos (auto) 0.67 (0.0-1.3) Lymphocytes % 7.2 L (24.0-44.0) % Monocytes % 7.6 (0.0-12.0) % Eosinophils % 0.3 (0.00-5.0) % Basophils % 0.2 (0.0-0.4) % Absolute Granulocytes 7.41 H (1.4-6.9) Basophils # 0.02 (0-0.4) Sodium 135 L (137-145) mmol/L Potassium 3.8 (3.5-5.1) mmol/L Chloride 100 (98-107) mmol/L Carbon Dioxide 25 (22-30) mmol/L Anion Gap 13.9 (5-15) MEQ/L BUN 15 (7-17) mg/dL Creatinine 0.72 (0.52-1.04) mg/dL Estimated GFR > 60.0 ML/MIN Glucose 111 H (74-106) mg/dL Lactic Acid 1.1 (0.4-2.0) Calcium 10.0 (8.4-10.2) mg/dL Total Bilirubin 1.60 H (0.2-1.3) mg/dL AST 20 (14-36) U/L ALT 17 (0-35) U/L Alkaline Phosphatase 101 (38-126) U/L Troponin I (0.000-0.034) ng/mL Serum Total Protein 7.6 (6.3-8.2) g/dL Albumin 4.5 (3.5-5.0) g/dL Amylase 58 (30-110) U/L Lipase 47 (23-300) U/L Urine Color (YELLOW) Urine Appearance (CLEAR) Urine pH (5-6) Ur Specific [place] (1.005-1.025) Urine Protein (Negative) Urine Ketones (NEGATIVE) Urine Blood (0-5) Jason/ul Urine Nitrite (NEGATIVE) Urine Bilirubin (NEGATIVE) Urine Urobilinogen (0-1) mg/dL Ur Leukocyte Esterase (NEGATIVE) Urine WBC (Auto) (0-5) /HPF Urine RBC (Auto) (0-2) /HPF U Epithel Cells (Auto) (FEW) /HPF Urine Bacteria (Auto) (NEGATIVE) /HPF Urine Mucus (Auto) (NEGATIVE) /HPF Urine Culture Reflexed (NO) Urine Glucose (NEGATIVE) mg/dL Influenza Type A Ag (NEGATIVE) Influenza Type B Ag (NEGATIVE) RSV (PCR) (Negative) - Progress Progress: improved Progress Note: 03/20/18 10:33 Patient feeling better after iv normal saline, and tylenol. labs, ekg, cxr and pelvis x ray all essentially normal. will discharge. - Departure Time of Disposition: 10:36 Departure Disposition: Home Clinical Impression: Myalgia, Malaise, possible side effect of immunization Condition: Fair Critical Care Time: No Referrals: DAKOTA DE SANTIAGO [Primary Care Provider] - Additional Instructions: Return home. Plenty of fluids. Tylenol every 4 hours as needed for pain. Follow-up with your family doctor. Return for acute distress or for severe symptoms.
[2018-03-20] MEDS ORDERED: Sodium Chloride 0.9% 1000 ML 1,000 ML IV SCH (07:45)
[2018-03-20] MEDS ORDERED: TYLENOL 325 MG ONE (07:46)
[2018-03-20] MEDS ORDERED: Sodium Chloride 0.9% 1000 ML 1,000 ML ONE (07:46)
[2018-03-20 08:07] LABS: BASOPHIL % 0.2 % (0.0-0.4); Basophil (Absolute #) 0.02 (0-0.4); Eosinophil % 0.3 % (0.00-5.0); Eosinophil (Absolute #) 0.03 (0-0.5); Granulocyte Absolute (ANC) 7.41 (1.4-6.9); Granulocytes % 84.7 % (36.0-66.0); Hematocrit 42.9 % (35-47); Hemoglobin 14.2 gm/dl (12.0-16.0); Lymphocyte (Absolute #) 0.63 (1.0-4.6); Lymphocytes % 7.2 % (24.0-44.0); Mean Cell Volume 89.2 fl (78-100); Mean Corpuscular Hemoglobin 29.5 pg (26-32); Mean Corpuscular Hgb Concent. 33.1 g/dl (32-36); Mean Platelet Volume 10.6 fl (6-9.5); Monocyte (Absolute #) 0.67 (0.0-1.3); Monocytes % 7.6 % (0.0-12.0); Platelet Count 257 K/mm3 (150-450); Red Blood Count 4.81 M/mm3 (4.1-5.4); Red Cell Distribution Width 14.1 % (11.5-14.0); White Blood Count 8.8 K/mm3 (4.0-10.5)
[2018-03-20 08:26] LABS: ALBUMIN 4.5 g/dL (3.5-5.0); ALKALINE PHOSPHATASE 101 U/L (38-126); AMYLASE 58 U/L (30-110); ANION GAP 13.9 MEQ/L (5-15); BLOOD UREA NITROGEN 15 mg/dL (7-17); CHLORIDE 100 mmol/L (98-107); Carbon Dioxide 25 mmol/L (22-30); Creatinine 1 0.72 mg/dL (0.52-1.04); Glucose 111 mg/dL (74-106); LIPASE 47 U/L (23-300); Potassium 3.8 mmol/L (3.5-5.1); SGOT/AST 20 U/L (14-36); SGPT/ALT 17 U/L (0-35); SODIUM 135 mmol/L (137-145); Total Protein 7.6 g/dL (6.3-8.2)
[2018-03-20 08:40] LABS: INFLUENZA A NEGATIVE (NEGATIVE); INFLUENZA B NEGATIVE (NEGATIVE); RESPIRATORY SYNCTIAL VIRUS NEGATIVE (Negative)
[2018-03-20 09:18] LABS: Appearance CLEAR (CLEAR); Bilirubin NEGATIVE (NEGATIVE); Blood NEGATIVE Ery/ul (0-5); Glucose NEGATIVE (NEGATIVE); Ketones TRACE (NEGATIVE); Leukocyte Esterase NEGATIVE (NEGATIVE); Nitrite NEGATIVE (NEGATIVE); Protein,Urine Dip NEGATIVE (Negative); Specific Gravity 1.005 (1.005-1.025); Urobilinogen NEGATIVE mg/dL (0-1)
--- NOTE | 2018-03-20 09:41 | XRAY ---
Indication: Pain. Comparison: December 14, 2017. Portable chest remains clear. Heart is not enlarged. Descending aorta remains tortuous. Bony thorax intact again with mild osteopenia. Impression: Stable nonacute chest with chronic features.
--- NOTE | 2018-03-20 09:44 | XRAY ---
Indication: Left hip pain. Comparison: None AP pelvis obtained with hips neutral and flexed position demonstrates pelvic phleboliths and mild lower lumbar degenerative spondylosis. No other bony, articular, or soft tissue abnormalities.
[2018-03-20 10:07] VITALS: BP 131/79; PULSE 97
[2018-03-20 10:15] VITALS: O2SAT 94
== END 2018-03-20 10:47 | disposition home or self-care (01) ==
LOC: ED 07:08
DX: M79.10 Myalgia, unspecified site (principal); R53.81 Other malaise; Z79.899 Other long term (current) drug therapy; R11.0 Nausea; M25.552 Pain in left hip
CPT/HCPCS: 36000; 36415; 71045; 72170; 80053; 81001; 82150; 83605; 83690; 84484; 85025; 87040; 87631; 93005; 96360; 99284; A9270-GY

== ENCOUNTER 2019-11-17 08:06 | Observation (INO) | payer MEDICARE, BC ==
--- NOTE | 2019-11-10 11:06 | HP ---
DATE OF SURGERY: 11/17/2019 HISTORY OF PRESENT ILLNESS: The patient is an 84 year-old female presented to the office with a left inguinal hernia, states that she saw a bulge about four months ago. She has been doing a lot more yard work since her passed. It is somewhat uncomfortable to her stating it is sore when you palpate it. It does reduce. PAST MEDICAL HISTORY: Hypertension, transient ischemic attack, hypothyroidism and aortic valve leakage. PAST SURGICAL HISTORY: Tonsillectomy. Cholecystectomy. Total hysterectomy. Hemorrhoidectomy. Appendectomy. ALLERGIES: NITROFURANTOIN. FENTANYL. CLINDAMYCIN. MEDICATIONS: Metoprolol, Cartia, levothyroxine. FAMILY HISTORY: Hypertension, cancer. SOCIAL HISTORY: Negative. REVIEW OF SYSTEMS: CONSTITUTIONAL: No fever. No chills. CHEST: Denies shortness of breath. CVS: Denies chest pain. ABDOMEN: Denies abdominal pain, nausea, vomiting, diarrhea or constipation. : Denies dysuria or hematuria. PHYSICAL EXAMINATION: GENERAL: No acute distress. CHEST: Nonlabored. No shortness of breath. CVS: Regular rate and rhythm. ABDOMEN: Soft, nontender to palpation. Moderate left inguinal hernia reducible. EXTREMITIES: No edema. NEUROLOGIC: Alert. PSYCHIATRIC: Appropriate. IMPRESSION: Left inguinal hernia reducible. PLAN: Repair of left inguinal hernia with possible mesh with Dr. Jose Padilla. As dictated by Sylvia Cobb NP.
[~2019-11-17 08:06] MED LIST: CEFAZOLIN 2 GM-D5W BAG** 2 GM/50 ML ML IV SCH; KEFZOL 1 GM ONE; KEFZOL 1 GM/50 ML PREMIX** 1 GM/50 ML IVPB IV ONE; Lactated Ringers 1,000 ML IV ONE; Sensorcaine 0.25% 10 ML ONE
[2019-11-17] MEDS: Lactated Ringers 1,000 ML IV SCH (08:23)
[2019-11-17] MEDS ORDERED: Versed 2 MG/2 ML Injection ONE (09:37)
[2019-11-17] MEDS: Versed 2 MG/2 ML Injection IV ONE ×2 (09:39→10:25)
[2019-11-17] MEDS ORDERED: SUBLIMAZE 100 MCG/2 ML ONE ×2 (11:43→12:40)
[2019-11-17] MEDS ORDERED: DIPRIVAN 200 MG/20 ML IV ONE (11:43)
[2019-11-17] MEDS ORDERED: DILAUDID 2 MG INJECTION ONE (12:58)
[2019-11-17] MEDS ORDERED: Zofran 4 MG/2 ML VIAL ONE ×2 (13:01→13:33)
[2019-11-17] MEDS ORDERED: TRANDATE 100 MG/20 ML MDV FOR DRIP IV ONE (13:07)
[2019-11-17] MEDS ORDERED: TRANDATE 100MG/20 ML MDV IV ONE (14:10)
--- NOTE | 2019-11-17 14:47 | OP ---
SURGERY DATE/TIME: 11/17/2019 1141 PREOPERATIVE DIAGNOSIS: Symptomatic left inguinal hernia. POSTOPERATIVE DIAGNOSIS: Left inguinal hernia indirect. PROCEDURE: Left inguinal hernia with mesh. SURGEON: Jose Padilla M.D. ANESTHESIA: General. COMPLICATIONS: None. CONDITION: Stable. INDICATION: The patient has symptomatic hernia. Marked preoperatively. DESCRIPTION OF PROCEDURE: Taken to surgery. General anesthetic. Routine prep and drape. Curvilinear incision. External oblique opened. A 2 inch indirect sac. It was invaginated back in inside out. The hole was closed with a figure-of-8 suture #0 Vicryl. The floor was reinforced with a 1 x 4 mesh making sure not to entrap fairly thin, small, petite ilioinguinal nerve. Floor was satisfactory. Rosemary fascia closed with 2-0 Vicryl. Skin closed with 4-0 Vicryl. Steri-Strips applied. Sterile dressing applied. The patient tolerated the procedure satisfactorily.
[2019-11-17] MEDS ORDERED: Zofran 4 MG/2 ML VIAL IV PRN (15:14)
[2019-11-17] MEDS ORDERED: Transderm Scop 1.5MG Patch TOP SCH (15:15)
[2019-11-17] MEDS: MORPHINE SULFATE 2 MG INJ IV PRN ×3 (15:49→23:04)
[2019-11-17] MEDS: Sodium Chloride 0.9% 1000 ML 1,000 ML IV SCH (16:36)
[2019-11-17] MEDS: ZOLOFT 50 MG TABLET PO SCH (16:37)
[2019-11-17] MEDS: Toprol-Xl 25MG Tablets PO SCH (16:38)
[2019-11-17] MEDS ORDERED: NON-FORMULARY ITEM (Sertraline Hcl [Sertraline Hcl] 25 MG) PO SCH (18:00)
[2019-11-17] MEDS ORDERED: Ativan 0.5 MG PO PRN (18:19)
[2019-11-17] MEDS ORDERED: SYNTHROID 75 MCG ONE (19:54)
[2019-11-17] MEDS: SYNTHROID 88 MCG PO SCH (21:23)
[2019-11-17] MEDS: NORCO 5/325 MG PO PRN (23:04)
[2019-11-18] MEDS: MORPHINE SULFATE 2 MG INJ IV PRN (03:15)
[2019-11-18 05:19] LABS: Hematocrit 40.8 % (35-47); Mean Cell Volume 92.7 fl (78-100); Mean Corpuscular Hemoglobin 29.5 pg (26-32); Mean Corpuscular Hgb Concent. 31.9 g/dl (32-36); Mean Platelet Volume 10.1 fl (7.5-11.0); Platelet Count 204 K/mm3 (150-450); Red Cell Distribution Width 14.5 % (11.5-14.0); White Blood Count 7.9 K/mm3 (4.0-10.5)
[2019-11-18 05:35] LABS: ANION GAP 8.4 MEQ/L (5-15); BLOOD UREA NITROGEN 15 mg/dL (7-17); CHLORIDE 102 mmol/L (98-107); Calcium 8.5 mg/dL (8.4-10.2); Carbon Dioxide 27 mmol/L (22-30); Creatinine 1 0.71 mg/dL (0.52-1.04); Glucose 104 mg/dL (74-106); Potassium 3.9 mmol/L (3.5-5.1); SODIUM 133 mmol/L (137-145)
[2019-11-18] MEDS: Cardizem CD 120 MG PO SCH (06:18)
[2019-11-18] MEDS: NORCO 5/325 MG PO PRN ×3 (06:18→18:58)
[2019-11-18] MEDS: Sodium Chloride 0.9% 1000 ML 1,000 ML IV SCH (06:19)
[2019-11-18] MEDS ORDERED: Colace 100 MG PO PRN (08:49)
[2019-11-18] MEDS: Aldactone 25 MG PO SCH (08:56)
[2019-11-18] MEDS: ECOTRIN 81 MG PO SCH (08:56)
[2019-11-18] MEDS: THERAGRAN MULTIVITAMIN PO SCH (08:56)
[2019-11-18] MEDS ORDERED: NORCO 5/325 MG PO ONE (08:57)
[2019-11-18] MEDS ORDERED: NON-FORMULARY ITEM (Multivitamin [Multivitamin] 1 TAB) PO SCH (10:00)
[2019-11-18] MEDS ORDERED: BABY ASPIRIN 81 MG CHEW PO SCH (10:00)
[2019-11-18] MEDS: ZOLOFT 50 MG TABLET PO SCH (18:58)
[2019-11-18] MEDS: Toprol-Xl 25MG Tablets PO SCH (18:59)
[2019-11-18] MEDS ORDERED: CHLORASEPTIC SPRAY 180 ML PO PRN (21:45)
[2019-11-18] MEDS: Lactated Ringers 1,000 ML IV SCH (21:50)
[2019-11-18] MEDS: SYNTHROID 88 MCG PO SCH (21:50)
[2019-11-19] MEDS: NORCO 5/325 MG PO PRN ×3 (02:00→14:31)
[2019-11-19] MEDS: Cardizem CD 120 MG PO SCH (09:04)
[2019-11-19] MEDS: THERAGRAN MULTIVITAMIN PO SCH (09:49)
[2019-11-19] MEDS: Aldactone 25 MG PO SCH (09:49)
[2019-11-19] MEDS: ECOTRIN 81 MG PO SCH (09:49)
--- NOTE | 2019-11-19 12:27 | PCM.HP ---
History of Present Illness - Chief Complaint Chief Complaint: Intractable pain, nausea, vertigo Date: 11/17/19 History of Present Illness: is a 84 year old female. Pt. had hernia repair in [facility] today. Pt. tolerated well but was having intractible pain, nausea, and difficulty with ambulation post-operatively. Decision was made to observe the patient for further treatment and stabilization. - Review of Systems Constitutional: Weakness, No Fever, No Chills Eyes: No Symptoms Ears, Nose, & Throat: No Symptoms Respiratory: No Cough, No Short Of Breath Cardiac: No Chest Pain, No Edema, No Syncope Abdominal/Gastrointestinal: Abdominal Pain, Nausea, Vomiting, No Diarrhea Genitourinary Symptoms: No Dysuria Musculoskeletal: Other (unsteady gait, difficulty with ambulation), No Back Pain, No Neck Pain Skin: No Rash Neurological: No Dizziness, No Focal Weakness, No Sensory Changes Psychological: No Symptoms Endocrine: No Symptoms Hematologic/Lymphatic: No Symptoms Immunological/Allergic: No Symptoms Medications & Allergies Home Medications: Home Medication List Diltiazem HCl [Cartia Xt] 240 mg PO 0700 12/14/17 [History Confirmed 11/17/19] Levothyroxine Sodium 88 Mcg [Synthroid 88 Mcg] 88 mcg HS 12/14/17 [History Confirmed 11/17/19] Sertraline HCl 25 mg PO EVENING MEAL 03/20/18 [History Confirmed 11/17/19] Aspirin 81 mg PO DAILY 11/02/19 [History Confirmed 11/17/19] Metoprolol Succinate 25 mg PO EVENING MEAL 11/02/19 [History Confirmed 11/17/19] Multivitamin 1 tab PO DAILY 11/02/19 [History Confirmed 11/17/19] Spironolactone 25 mg [Aldactone 25 MG] 25 mg PO DAILY 11/02/19 [History Confirmed 11/17/19] Allergies/Adverse Reactions: Allergies Allergy/AdvReac Type Severity Reaction Status Date / Time nitrofurantoin Allergy Mild Rash Verified 11/17/19 08:28 [From Macrobid] fentanyl AdvReac Intermediate hallucinati Verified 11/17/19 08:28 ons clindamycin AdvReac Verified 11/17/19 08:28 - Past Medical History Past Medical History: Yes Neurological History: No Pertinent History ENT History: No Pertinent History Cardiac History: Hypertension, Other Respiratory History: Pneumonia Endocrine Medical History: Hypothyroidism Musculoskelatal History: Arthritis GI Medical History: Hemorrhoids History: No Pertinent History Pyscho-Social History: Anxiety, Depression Reproductive Disorders: No Pertinent History Comment: VERICOSE VEINS - Female History Are you now?: No - Past Surgical History Past Surgical History: Yes Neuro Surgical History: No Pertinent History Cardiac History: No Pertinent History Respiratory Surgery: No Pertinent History GI Surgical History: Appendectomy, Cholecystectomy, Hemorrhoidectomy Genitourinary Surgical Hx: No Pertinent History Musculskeletal Surgical Hx: No Pertinent History Female Surgical History: Hysterectomy Other Surgical History: TYMPANOPLASTY- RIGHT EAR - Social History Smoking Status: Never smoker Exposure to second hand smoke: No Alcohol: None Drug Use: none - Physical Exam Vital Signs: Vital Signs - 24 hr Temp Pulse Resp BP BP Pulse Ox 11/19/19 12:00 98.7 F 76 20 163/82 90 L 11/19/19 08:00 97.7 F 72 18 172/85 96 11/19/19 06:59 96 11/19/19 04:00 97.7 F 69 18 169/81 96 11/18/19 23:40 97.9 F 56 L 20 133/78 95 11/18/19 21:00 98.4 F 58 L 16 129/68 94 L 11/18/19 20:03 92 L 11/18/19 17:00 97.8 F 68 16 133/65 91 L Oxygen-Last 24 hours Oxygen Flowrate (L/min)-RT 2 Oxygen Flowrate (L/min)-RT 2 General Appearance: no apparent distress, alert Neurologic Exam: alert, oriented x 3, cooperative, normal mood/affect, nml cerebellar function, nml station & gait, sensation nml, abnormal gait, No motor deficits Eye Exam: PERRL/EOMI, eyes nml inspection Ears, Nose, Throat Exam: normal ENT inspection, TMs normal, pharynx normal, moist mucous membranes Neck Exam: normal inspection, non-tender, supple, full range of motion Respiratory Exam: normal breath sounds, lungs clear, No respiratory distress Cardiovascular Exam: regular rate/rhythm, normal heart sounds, normal peripheral pulses Gastrointestinal/Abdomen Exam: soft, normal bowel sounds, tenderness (over incision site), No mass Back Exam: normal inspection, normal range of motion, No CVA tenderness, No vertebral tenderness Extremity Exam: normal inspection, normal range of motion, pelvis stable Skin Exam: normal color, warm, dry, No rash Lymphatic Exam: No adenopathy Results - Other Procedures and Tests Respiratory Therapy 11/18/19 20:03 Oxygen Nasal Cannula 2 lpm Assessment/Plan (1) Intractable abdominal pain Current Visit: Yes Status: Acute Assessment & Plan: IV and Po pain medication Code(s): R10.9 - UNSPECIFIED ABDOMINAL PAIN (2) Nausea after anesthesia Current Visit: Yes Status: Acute Assessment & Plan: IV and po nausea medication Code(s): T88.59XA - OTHER COMPLICATIONS OF ANESTHESIA, INITIAL ENCOUNTER; R11.0 - NAUSEA (3) Unstable gait Current Visit: No Status: Acute Assessment & Plan: treatment of other with aided ambulation Code(s): R26.81 - UNSTEADINESS ON FEET
--- NOTE | 2019-11-19 12:34 | PCM.NOTE ---
Date and Time: 11/18/19 0900 Subjective Assessment: Pt. still with a lot of pain, notes nausea is improved, but a lot of difficulty with ambulation, pt. currently unable to ambulate without assistance and pt. does live alone. - Review of Systems Constitutional: Fatigue, No Fever, No Chills Eyes: No Symptoms Ears, Nose, & Throat: No Symptoms Respiratory: No Cough, No Short Of Breath Cardiac: No Chest Pain, No Edema, No Syncope Abdominal/Gastrointestinal: Abdominal Pain, Nausea, No Vomiting, No Diarrhea Genitourinary Symptoms: No Dysuria Musculoskeletal: Other (marked difficulty with ambulation, unable to do so without assist of 1), No Back Pain, No Neck Pain Skin: No Rash Neurological: No Dizziness, No Focal Weakness, No Sensory Changes Psychological: No Symptoms Endocrine: No Symptoms Hematologic/Lymphatic: No Symptoms Immunological/Allergic: No Symptoms Objective Exam General Appearance: no apparent distress Neurologic Exam: alert, oriented x 3, cooperative Skin Exam: normal color, warm, dry, rash Eye Exam: EOMI, eyes nml inspection Ears, Nose, Throat Exam: normal ENT inspection Neck Exam: normal inspection Lymphatic Exam: No adenopathy Respiratory Exam: normal breath sounds, lungs clear, No chest tenderness Cardiovascular Exam: regular rate/rhythm, normal heart sounds Gastrointestinal/Abdomen Exam: normal bowel sounds, tenderness Extremity Exam: normal inspection Back Exam: normal inspection Pelvic Exam: deferred Rectal Exam: deferred OBJECTIVE DATA Vital Signs: Vital Signs - 24 hr Temp Pulse Resp BP BP Pulse Ox 11/19/19 12:00 98.7 F 76 20 163/82 90 L 11/19/19 08:00 97.7 F 72 18 172/85 96 11/19/19 06:59 96 11/19/19 04:00 97.7 F 69 18 169/81 96 11/18/19 23:40 97.9 F 56 L 20 133/78 95 11/18/19 21:00 98.4 F 58 L 16 129/68 94 L 11/18/19 20:03 92 L 11/18/19 17:00 97.8 F 68 16 133/65 91 L Oxygen-Last 24 hours Oxygen Flowrate (L/min)-RT 2 Oxygen Flowrate (L/min)-RT 2 Pain Assessment - Last Documented Pain Intensity [Left Anterior] 3 Pain Intensity 7 Pain Scale Used 0-10 Pain Scale Intake and Output: Intake & Output 11/17/19 11/18/19 11/19/19 11/20/19 11:59 11:59 11:59 11:59 Intake Total 3182 3081 Output Total 1300 450 Balance 1882 2631 Weight 63.2 kg 63.2 kg 66.5 kg Assessment/Plan (1) Intractable abdominal pain Current Visit: Yes Status: Acute Assessment & Plan: improved able to control with po medication Code(s): R10.9 - UNSPECIFIED ABDOMINAL PAIN (2) Nausea after anesthesia Current Visit: Yes Status: Acute Assessment & Plan: improved no nausea medication since 299 Code(s): T88.59XA - OTHER COMPLICATIONS OF ANESTHESIA, INITIAL ENCOUNTER; R11.0 - NAUSEA (3) Unstable gait Current Visit: No Status: Acute Assessment & Plan: still unable to ambulate without assistance Code(s): R26.81 - UNSTEADINESS ON FEET
--- NOTE | 2019-11-19 12:42 | PCM.DS ---
Discharge Summary Date of Admission: 11/17/19 15:00 Date of Discharge: 11/19/2019 Admitting Physician: CAMILO PECK Primary Care Provider: CAMILO PECK Allergies Allergies nitrofurantoin [From Macrobid] Allergy (Mild, Verified 11/17/19 08:28) Rash fentanyl Adverse Reaction (Intermediate, Verified 11/17/19 08:28) hallucinations clindamycin Adverse Reaction (Verified 11/17/19 08:28) "hurts my stomach" Hospital Summary - Hospital Course Hospital Course: Pt. admitted post-operatively for intractible pain, nause, and unsteady gait. P t. nausea improved first followed by better pain control and finally able to get up and about with minimal assistance by this am. At this time patient and I agree she will be able to go home, she did have some low oxygen saturation last night, we will start and maintain incentive spirometry for this, and pt. to be discharged with home incentive spirometry, home health is scheduled to start tomorrow and assist the patient for the next 2 weeks - Vitals & Intake/Output Vital Signs: Vital Signs Temperature 98.7 F 11/19/19 12:00 Pulse Rate 76 11/19/19 12:00 Respiratory Rate 20 11/19/19 12:00 Blood Pressure 163/82 11/19/19 12:00 O2 Sat by Pulse Oximetry 90 L 11/19/19 12:00 Oxygen-Last Documented O2 Percentage 2 Liters = 28% Intake & Output: Intake & Output 11/17/19 11/18/19 11/19/19 11/20/19 11:59 11:59 11:59 11:59 Intake Total 3182 3081 Output Total 1300 450 Balance 1882 2631 Weight 63.2 kg 63.2 kg 66.5 kg - Lab Result Diagrams: 11/18/19 04:53 11/18/19 04:53 - Procedures and Test Procedures and Tests throughout Hospitalization: Therapy Orders & Screens 11/18/19 09:22 RT Miscellaneous Order ROUTINE Comment: Physician Instructions: Reason For Exam: WEAN O2 (PATIENT DOES NOT USE AT HOME) Diagnosis: Intractable pain, nausea, vertigo 11/18/19 13:13 PT Eval & Treat ( Order) ROUTINE Reason for Eval:: NOT AMBULATING WELL AFTER HERNIA REPAIR 11/17/19 Diagnosis: Intractable pain, nausea, vertigo 11/18/19 20:03 Oxygen Nasal Cannula 2 lpm Comment: Diagnosis: Intractable pain, nausea, vertigo 11/19/19 12:27 Incentive Spirometry TID Comment: Diagnosis: Intractable pain, nausea, vertigo Discharge Exam General Appearance: no apparent distress, alert Neurologic Exam: alert, oriented x 3, cooperative, normal mood/affect, nml cerebellar function, sensation nml, No motor deficits Eye Exam: PERRL, EOMI, eyes nml inspection Ears, Nose, Throat Exam: normal ENT inspection, pharynx normal, moist mucous membranes Neck Exam: normal inspection, non-tender, supple, full range of motion Respiratory Exam: normal breath sounds, lungs clear, No respiratory distress Cardiovascular Exam: regular rate/rhythm, normal heart sounds Gastrointestinal/Abdomen Exam: soft, tenderness (mild tenderness, and wound appears to be healing well), No mass Pelvic Exam: deferred Rectal Exam: deferred Back Exam: normal inspection, normal range of motion, No CVA tenderness, No vertebral tenderness Extremity Exam: normal inspection, normal range of motion Skin Exam: normal color, warm, dry Final Diagnosis/Problem List - Final Discharge Diagnosis/Problem (1) Intractable abdominal pain Current Visit: Yes Status: Acute Assessment & Plan: tolerating now with oral medication Code(s): R10.9 - UNSPECIFIED ABDOMINAL PAIN (2) Nausea after anesthesia Current Visit: Yes Status: Acute Assessment & Plan: resolved Code(s): T88.59XA - OTHER COMPLICATIONS OF ANESTHESIA, INITIAL ENCOUNTER; R11.0 - NAUSEA (3) Unstable gait Current Visit: No Status: Acute Assessment & Plan: stable enough to be discharged to home with home health assistance Code(s): R26.81 - UNSTEADINESS ON FEET - Discharge Discharge Date: 11/19/19 Disposition: Home, Self-Care Condition: Stable Prescriptions: No Action Levothyroxine Sodium 88 Mcg [Synthroid 88 Mcg] 88 mcg HS Diltiazem HCl [Cartia Xt] 240 mg PO 0700 Sertraline HCl 25 mg PO EVENING MEAL Multivitamin 1 tab PO DAILY Metoprolol Succinate 25 mg PO EVENING MEAL Spironolactone 25 mg [Aldactone 25 MG] 25 mg PO DAILY Aspirin 81 mg PO DAILY Additional Instructions: [facility] WILL CONTACT YOU TO SET UP YOUR FIRST VISIT. YOU CAN CALL THEM AT [phone] IF YOU HAVE ANY QUESTIONS OR CONCERNS. INCENTIVE SPIROMETRY 1 EVERY 15 MINUTES OR 4 EVERY 2 HOURS WHILE AWAKE, MIRALAX 1 CAPFUL IN 8 OUNCES OF WATER DAILY AT 3PM IF NO BOWEL MOVEMENT THAT DAY. WATCH FOR EXCE SS REDNESS OR DRAINAGE FROM INCISION SITE, CONTACT DOCTOR IF CONCERNS Follow up with: CAMILO PECK [Primary Care Provider] - 1 Week SAM BERNAL [ACTIVE STAFF] - 12/01/19 2:20 pm (AT [facility])
[2019-11-19 16:54] VITALS: BP 157/78; PULSE 73; O2SAT 91
== END 2019-11-19 17:29 | disposition home or self-care (01) ==
LOC: SDC 08:06 → MED SURG 15:00
PROVIDERS: ADMIT Family Medicine; ATTEND Family Medicine
DX: R10.9 Unspecified abdominal pain (principal); K40.90 Unilateral inguinal hernia, without obstruction or gangrene, not specified as recurrent; R11.0 Nausea; R26.81 Unsteadiness on feet; T88.59XA Other complications of anesthesia, initial encounter; I10 Essential (primary) hypertension; R42 Dizziness and giddiness; E03.9 Hypothyroidism, unspecified; Z86.73 Personal history of transient ischemic attack (TIA), and cerebral infarction without residual deficits; Z79.899 Other long term (current) drug therapy
CPT/HCPCS: 36415; 49505; 80048; 85027; 94760; C1781; G0378; 99100; J0690; J1170; J2250; J2270; J2405; J2704; J3010; A9270-GY

== ENCOUNTER 2020-10-11 11:58 | Emergency (ER) | payer MEDICARE, BC ==
[2020-10-11] MEDS ORDERED: MORPHINE SULFATE 2 MG INJ IV ONE (12:09)
[2020-10-11] MEDS ORDERED: Zofran 4 MG/2 ML VIAL IV ONE (12:09)
--- NOTE | 2020-10-11 12:13 | ERPHSYRPT ---
- History of Present Illness Time Seen by Provider: 10/11/20 12:15 Historian: patient Physician History: Patient is a 85-year-old female presents to our ED as a referral from her primary care physician, Dr. Peck. Patient is here for evaluation of lower abdominal pain. Symptoms started approximately 3 days ago. Pain described as a soreness sensation that is constant. No specific or worsening symptoms. Patient feels her abdomen is more distended than usual. No nausea or vomiting. No diarrhea. No rash. No trauma. No fever. Symptoms are mild in intensity. No specific or improving factors. No associated chest pain or shortness of breath. Patient voices no other complaints or concerns at this time. Timing/Duration: today Activities at Onset: none Quality: aching Abdominal Pain Onset Location: RLQ, LLQ Pain Radiation: no radiation Severity of Pain-Max: moderate Severity of Pain-Current: mild Modifying Factors: Improves With: nothing Associated Symptoms: denies symptoms, No chest pain, No diarrhea, No fever/chills, No headache, No heartburn, No loss of appetite, No nausea, No neck pain, No shortness of breath, No syncope Previous symptoms: no prior history Allergies/Adverse Reactions: nitrofurantoin [From Macrobid] Allergy (Mild, Verified 10/11/20 12:16) Rash fentanyl Adverse Reaction (Intermediate, Verified 10/11/20 12:16) hallucinations clindamycin Adverse Reaction (Verified 10/11/20 12:16) "hurts my stomach" Home Medications: Diltiazem HCl [Cartia Xt] 240 mg PO 0700 12/14/17 [History] Levothyroxine Sodium 88 Mcg [Synthroid 88 Mcg] 88 mcg PO HS 12/14/17 [History] Sertraline HCl 25 mg PO EVENING MEAL 03/20/18 [History] Metoprolol Succinate 50 mg PO EVENING MEAL 11/02/19 [History] Spironolactone 25 mg [Aldactone 25 MG] 25 mg PO DAILY PRN 11/02/19 [History] Primidone 50 MG [Mysoline 50Mg] 50 mg PO DAILY 10/11/20 [History] Ropinirole HCl 0.5 mg [Requip 0.5 MG] 0.5 mg PO DAILY 10/11/20 [History] Hx Tetanus, Diphtheria Vaccination/Date Given: Yes Hx Influenza Vaccination/Date Given: Yes Hx Pneumococcal Vaccination/Date Given: Yes - Review of Systems Constitutional: No Symptoms, No Fever, No Chills Eyes: No Symptoms Ears, Nose, & Throat: No Symptoms Respiratory: No Symptoms, No Cough, No Dyspnea Cardiac: No Symptoms, No Chest Pain, No Edema, No Syncope Abdominal/Gastrointestinal: No Symptoms, No Abdominal Pain, No Nausea, No Vomiting, No Diarrhea Genitourinary Symptoms: No Symptoms, No Dysuria Musculoskeletal: No Symptoms, No Back Pain, No Neck Pain Skin: No Symptoms, No Rash Neurological: No Symptoms, No Dizziness, No Focal Weakness, No Sensory Changes Psychological: No Symptoms Endocrine: No Symptoms Hematologic/Lymphatic: No Symptoms Immunological/Allergic: No Symptoms All Other Systems: Reviewed and Negative - Past Medical History Pertinent Past Medical History: Yes Neurological History: No Pertinent History ENT History: No Pertinent History Cardiac History: Hypertension, Other Respiratory History: Pneumonia Endocrine Medical History: Hypothyroidism Musculoskeletal History: Arthritis GI Medical History: Hemorrhoids History: No Pertinent History Psycho-Social History: Anxiety, Depression Female Reproductive Disorders: No Pertinent History Other Medical History: VERICOSE VEINS - Past Surgical History Past Surgical History: Yes Neuro Surgical History: No Pertinent History Cardiac: No Pertinent History Respiratory: No Pertinent History Gastrointestinal: Appendectomy, Cholecystectomy, Hemorrhoidectomy Genitourinary: No Pertinent History Musculoskeletal: No Pertinent History Female Surgical History: Hysterectomy Other Surgical History: TYMPANOPLASTY- RIGHT EAR - Social History Smoking Status: Never smoker Exposure to second hand smoke: No Drug Use: none Patient Lives Alone: No - Nursing Vital Signs Nursing Vital Signs: Initial Vital Signs Temperature 98.8 F 10/11/20 12:06 Pulse Rate 78 10/11/20 12:06 Blood Pressure 191/107 10/11/20 12:06 O2 Sat by Pulse Oximetry 97 10/11/20 12:06 Pain Scale Pain Intensity 3 - Physical Exam General Appearance: no apparent distress, alert Eye Exam: PERRL/EOMI, eyes nml inspection Ears, Nose, Throat Exam: normal ENT inspection, pharynx normal, moist mucous membranes Neck Exam: normal inspection, non-tender, supple, full range of motion Respiratory Exam: normal breath sounds, lungs clear, airway intact, No respiratory distress Cardiovascular Exam: regular rate/rhythm, normal heart sounds Gastrointestinal/Abdomen Exam: soft, distention, other (Tenderness palpation and distention of lower abdomen. Overlying soft tissue intact. No signs of trauma.), No tenderness, No mass Pelvic Exam: not done Back Exam: normal inspection, normal range of motion, No CVA tenderness, No vertebral tenderness Extremity Exam: normal inspection, normal range of motion, pelvis stable Neurologic Exam: alert, oriented x 3, cooperative, normal mood/affect, sensation nml, No motor deficits Skin Exam: normal color, warm, dry Lymphatic Exam: adenopathy SpO2 Interpretation: normal SpO2: 97 O2 Delivery: Room Air Ordered Tests: Active Orders 24 hr Category Date Time Status IV Insertion STAT Care 10/11/20 12:09 Active ABDOMEN AND PELVIS W CONTRAST [CT] Stat Exams 10/11/20 12:09 Completed CBC W DIFF Stat Lab 10/11/20 12:15 Completed CMP Stat Lab 10/11/20 12:15 Completed LIPASE Stat Lab 10/11/20 12:15 Completed TROPONIN Q3H Lab 10/11/20 12:15 Completed TROPONIN Q3H Lab 10/11/20 15:07 Completed TROPONIN Q3H Lab 10/11/20 18:15 Ordered TROPONIN Q3H Lab 10/11/20 21:15 Ordered TROPONIN Q3H Lab 10/12/20 00:15 Ordered UA W/RFX UR CULTURE Stat Lab 10/11/20 12:09 Ordered Medication Summary Generic Name Dose Route Start Last Admin Trade Name Freq PRN Reason Stop Dose Admin Sodium Chloride 1,000 mls @ 100 mls/hr 10/11/20 12:15 10/11/20 12:34 Sodium Chloride 0.9% 1000 Ml IV 11/10/20 12:14 100 mls/hr .Q10H ESTEFANIA Administration Discontinued Medications Generic Name Dose Route Start Last Admin Trade Name Freq PRN Reason Stop Dose Admin Morphine Sulfate 2 mg 10/11/20 12:09 10/11/20 12:38 Morphine Sulfate 2 Mg Inj IV 10/11/20 12:10 2 mg STAT ONE Administration Morphine Sulfate Confirm 10/11/20 12:30 Morphine Sulfate 2 Mg Inj Administered 10/11/20 12:31 Dose 2 mg .ROUTE .STK-MED ONE Ondansetron HCl 4 mg 10/11/20 12:09 10/11/20 12:35 Zofran 4 Mg/2 Ml Vial IV 10/11/20 12:10 4 mg STAT ONE Administration Ondansetron HCl Confirm 10/11/20 12:30 Zofran 4 Mg/2 Ml Vial Administered 10/11/20 12:31 Dose 4 mg .ROUTE .STK-MED ONE Lab/Rad Data: Laboratory Result Diagrams 10/11/20 12:15 10/11/20 12:15 Laboratory Results 10/11/20 10/11/20 10/11/20 Range/Units 15:07 12:15 12:15 WBC (4.0-10.5) K/mm3 RBC (4.1-5.4) M/mm3 Hgb (12.0-16.0) gm/dl Hct (35-47) % MCV (78-100) fl MCH (26-32) pg MCHC (32-36) g/dl RDW (11.5-14.0) % Plt Count (150-450) K/mm3 MPV (7.5-11.0) fl Gran % (36.0-66.0) % Eos # (Auto) (0-0.5) Absolute Lymphs (auto) (1.0-4.6) Absolute Monos (auto) (0.0-1.3) Lymphocytes % (24.0-44.0) % Monocytes % (0.0-12.0) % Eosinophils % (0.00-5.0) % Basophils % (0.0-0.4) % Absolute Granulocytes (1.4-6.9) Basophils # (0-0.4) Sodium 134 L (137-145) mmol/L Potassium 4.0 (3.5-5.1) mmol/L Chloride 98 (98-107) mmol/L Carbon Dioxide 26 (22-30) mmol/L Anion Gap 13.5 (5-15) MEQ/L BUN 16 (7-17) mg/dL Creatinine 0.65 (0.52-1.04) mg/dL Estimated GFR > 60.0 ML/MIN Glucose 99 (74-106) mg/dL Calcium 9.9 (8.4-10.2) mg/dL Total Bilirubin 1.50 H (0.2-1.3) mg/dL AST 23 (14-36) U/L ALT 15 (0-35) U/L Alkaline Phosphatase 91 (38-126) U/L Troponin I < 0.012 < 0.012 (0.000-0.034) ng/mL Serum Total Protein 8.1 (6.3-8.2) g/dL Albumin 4.6 (3.5-5.0) g/dL Lipase 54 (23-300) U/L 10/11/ Range/Units 12:15 WBC 8.4 (4.0-10.5) K/mm3 RBC 4.87 (4.1-5.4) M/mm3 Hgb 14.4 (12.0-16.0) gm/dl Hct 44.3 (35-47) % MCV 91.0 (78-100) fl MCH 29.6 (26-32) pg MCHC 32.5 (32-36) g/dl RDW 14.1 H (11.5-14.0) % Plt Count 267 (150-450) K/mm3 MPV 10.1 (7.5-11.0) fl Gran % 68.5 H (36.0-66.0) % Eos # (Auto) 0.20 (0-0.5) Absolute Lymphs (auto) 1.41 (1.0-4.6) Absolute Monos (auto) 1.01 (0.0-1.3) Lymphocytes % 16.8 L (24.0-44.0) % Monocytes % 12.1 H (0.0-12.0) % Eosinophils % 2.4 (0.00-5.0) % Basophils % 0.2 (0.0-0.4) % Absolute Granulocytes 5.74 (1.4-6.9) Basophils # 0.02 (0-0.4) Sodium (137-145) mmol/L Potassium (3.5-5.1) mmol/L Chloride (98-107) mmol/L Carbon Dioxide (22-30) mmol/L Anion Gap (5-15) MEQ/L BUN (7-17) mg/dL Creatinine (0.52-1.04) mg/dL Estimated GFR ML/MIN Glucose (74-106) mg/dL Calcium (8.4-10.2) mg/dL Total Bilirubin (0.2-1.3) mg/dL AST (14-36) U/L ALT (0-35) U/L Alkaline Phosphatase (38-126) U/L Troponin I (0.000-0.034) ng/mL Serum Total Protein (6.3-8.2) g/dL Albumin (3.5-5.0) g/dL Lipase (23-300) U/L - Progress Progress: improved Progress Note: Patient reassessed. No pain at this time. CT scan reveals constipation. We ordered a urinalysis however patient wanted to be discharged before results. Patient will be discharged home. Case discussed with Dr. Peck. Patient agrees to follow-up with Dr. Peck within 48 hours for reevaluation. Patient voices no other complaints concerns at this time. Vital stable. 10/11/20 16:39 Discussed with .: Gurpreet Will see patient in: office Counseled pt/family regarding: lab results, diagnosis, need for follow-up, rad results - Departure Departure Disposition: Home Clinical Impression: Hepatic cyst, Vascular calcification, Constipation, Diverticulosis, Arthritis, lumbar spine, Spondylolisthesis, Retrolisthesis, Anterolisthesis Condition: Stable Critical Care Time: No Referrals: CAMILO PECK [Primary Care Provider] - Additional Instructions: Discharge/Care Plan CONSUELO HINTON was seen on 10/11/20 in the Emergency Room. The patient was counseled regarding Diagnosis,Lab results, Imaging studies, need for follow up and when to return to the Emergency Room. Prescriptions given: Discharge Note I have spoken with the patient and/or caregivers. I have explained the patient's condition, diagnosis and treatment plan based on the information available to me at this time. I have answered the patient's and/or caregiver's questions and addressed any concerns. The patient and/or caregivers have as good understanding of the patient's diagnosis, condition and treatment plan as can be expected at this point. The vital signs have been stable. The patient's condition is stable and appropriate for discharge from the emergency department. The patient will pursue further outpatient evaluation with the primary care physician or other designated or consulting physician as outlined in the discharge instructions. The patient and/or caregivers are agreeable to this plan of care and follow-up instructions have been explained in detail. The patient and/or caregivers have received these instruction. The patient/and or caregivers are aware that any significant change in condition or worsening of symptoms should prompt an immediate return to this or the closest emergency department or call 911.
[2020-10-11] MEDS ORDERED: Sodium Chloride 0.9% 1000 ML 1,000 ML IV SCH (12:15)
[2020-10-11 12:24] LABS: Absolute Neutrophil Ct (ANC) 5.74 (1.4-6.9); BASOPHIL % 0.2 % (0.0-0.4); Basophil (Absolute #) 0.02 (0-0.4); Eosinophil % 2.4 % (0.00-5.0); Hematocrit 44.3 % (35-47); Hemoglobin 14.4 gm/dl (12.0-16.0); Lymphocyte (Absolute #) 1.41 (1.0-4.6); Lymphocytes % 16.8 % (24.0-44.0); Mean Corpuscular Hemoglobin 29.6 pg (26-32); Mean Corpuscular Hgb Concent. 32.5 g/dl (32-36); Mean Platelet Volume 10.1 fl (7.5-11.0); Monocyte (Absolute #) 1.01 (0.0-1.3); Monocytes % 12.1 % (0.0-12.0); Neutrophil % 68.5 % (36.0-66.0); Platelet Count 267 K/mm3 (150-450); Red Blood Count 4.87 M/mm3 (4.1-5.4); Red Cell Distribution Width 14.1 % (11.5-14.0); White Blood Count 8.4 K/mm3 (4.0-10.5)
[2020-10-11] MEDS ORDERED: Zofran 4 MG/2 ML VIAL ONE (12:30)
[2020-10-11] MEDS ORDERED: MORPHINE SULFATE 2 MG INJ ONE (12:30)
[2020-10-11] MEDS ORDERED: Sodium Chloride 0.9% 1000 ML 1,000 ML ONE (12:31)
[2020-10-11 12:32] LABS: ALBUMIN 4.6 g/dL (3.5-5.0); ALKALINE PHOSPHATASE 91 U/L (38-126); ANION GAP 13.5 MEQ/L (5-15); BLOOD UREA NITROGEN 16 mg/dL (7-17); CHLORIDE 98 mmol/L (98-107); Calcium 9.9 mg/dL (8.4-10.2); Carbon Dioxide 26 mmol/L (22-30); Creatinine 1 0.65 mg/dL (0.52-1.04); EST GLOMERULAR FILTRATION RATE > 60.0 ML/MIN; Glucose 99 mg/dL (74-106); LIPASE 54 U/L (23-300); SGOT/AST 23 U/L (14-36); SGPT/ALT 15 U/L (0-35); SODIUM 134 mmol/L (137-145); Total Protein 8.1 g/dL (6.3-8.2)
--- NOTE | 2020-10-11 14:33 | XRAY ---
Exam: CT of the abdomen and pelvis with IV contrast from 10/11/2020. CTDI: 5.51 mGy Comparison: CT of the abdomen and pelvis without IV contrast from 03/05/2017. Indication: 85-year-old female with abdominal pain and swelling in the lower abdomen. The patient gives a history of prior cholecystectomy, appendectomy, and hysterectomy. Technique: Post-IV contrast axial images were obtained through the abdomen and pelvis during automated injection of 80 ML's of Isovue 370 contrast material. Reconstructed coronal and sagittal images were created and reviewed. Some delay axial images were obtained through the abdomen and pelvis as well. Findings: The transverse heart size appears slightly enlarged. The visualized lung bases reveal minimal scarring/atelectasis at the posterior right lung base representing no change. There is also a curvilinear strand of scarring or chronic plate atelectasis at the central left lung base. No active disease is seen at either lung base. The liver appears of normal size. A couple similar hepatic cysts are seen, the largest measuring about 1.9 cm in diameter. These appear of similar size as compared to 03/05/2017. Surgical clips consistent with prior cholecystectomy are seen. There is mild intrahepatic and extrahepatic biliary duct distention, likely due to the patient's advanced age or prior cholecystectomy. The spleen is not enlarged. No splenic mass is seen. Some mild diffuse atrophy of the pancreas is seen. A definite mass is not noted. The adrenal glands appear unremarkable. The kidneys appear of unremarkable size and shape. No renal calculi or hydronephrosis is seen. Both kidneys function on delay images. The right kidney measures 10.2 cm in length on sagittal image #65 and the left kidney measures 10.2 cm in length on sagittal image #117. No renal mass is seen. Portions of both ureters are seen on the delay images. Mild tortuosity and atherosclerotic vascular calcification are seen within the abdominal aorta and iliac arteries. Some vascular calcification is also seen within the common femoral arteries No abdominal aortic aneurysm is seen. Appears no abnormal retroperitoneal lymphadenopathy. No free intraperitoneal air or ventral abdominal wall hernia is seen. Moderate stool is seen scattered throughout the colon. No abnormal bowel distention or bowel wall thickening is seen. I do note multiple diverticula within the sigmoid colon consistent with diverticulosis. This is unchanged. There is no evidence of acute diverticulitis. There is also a small diverticulum within the splenic flexure. The appendix is not seen consistent with the patient's history of prior appendectomy. Within the pelvis, the uterus is surgically absent. The urinary bladder is opacified on the delay images and appears unremarkable. Some calcified phleboliths are seen within the lower pelvis. No other pelvic mass, abnormal pelvic lymphadenopathy, or free intraperitoneal fluid is seen. The inguinal regions appear unremarkable. The skeleton reveals no acute fracture or aggressive bone lesion. Marked facet joint osteoarthropathy is seen at L3-L4, L4-L5, and L5-S1 bilaterally. There is slight convexity of the lower thoracic spine toward the right. There is about 5 mm anterior spondylolisthesis of L4 over L5 without spondylolysis. This is unchanged and is likely due to the patient's pronounced facet joint arthropathy at this level. The L4-L5 interspace height appears fairly well-maintained. In addition, there is minimal 2-3 mm retrolisthesis of L1 with respect to L2, likely degenerative. I also see minimal 2-3 mm anterolisthesis of L3 over L4 which is a bit more pronounced as compared to 03/05/2017. Again, there is no spondylolysis. This is likely due to pronounced facet joint arthropathy at L3-L4. Impression: 1. I see no acute process within the abdomen or pelvis. 2. Two hepatic cysts appear similar as compared to 03/05/2017. 3. Mild diffuse pancreatic atrophy. 4. Mild sigmoid colon diverticulosis without evidence of diverticulitis. I also note moderate scattered fecal residue throughout the colon. No bowel obstruction or free air/free fluid is seen. 5. The patient is status post appendectomy, cholecystectomy, and hysterectomy representing no change. 6. Skeletal findings, as discussed above.
[2020-10-11 16:28] LABS: Appearance CLEAR (CLEAR); Bilirubin NEGATIVE (NEGATIVE); Blood NEGATIVE Ery/ul (0-5); Epithelial Cells RARE /HPF (FEW); Glucose NEGATIVE (NEGATIVE); Ketones SMALL (NEGATIVE); Leukocyte Esterase NEGATIVE (NEGATIVE); Mucus SLIGHT /HPF (NEGATIVE); Nitrite NEGATIVE (NEGATIVE); Protein,Urine Dip NEGATIVE (Negative); Specific Gravity 1.042 (1.005-1.025); Urobilinogen NEGATIVE mg/dL (0-1)
[2020-10-11 16:57] VITALS: BP 159/84; PULSE 80; O2SAT 95
== END 2020-10-11 16:45 | disposition home or self-care (01) ==
LOC: ED 11:58
DX: K76.89 Other specified diseases of liver (principal); I73.9 Peripheral vascular disease, unspecified; K59.00 Constipation, unspecified; K57.90 Diverticulosis of intestine, part unspecified, without perforation or abscess without bleeding; M47.896 Other spondylosis, lumbar region; M43.10 Spondylolisthesis, site unspecified; Z79.899 Other long term (current) drug therapy
CPT/HCPCS: 36415; 74177; 80053; 81001; 83690; 84484; 85025; 96374; 96375; 99284; J2270; J2405